=== PATIENT | male | born 1970 | race Caucasian/White ===

== ENCOUNTER 2021-01-28 11:03 | Inpatient (IN) | payer BC ==
[~2021-01-28] VITALS: Ht 195.6 cm; Wt 202.1 kg
[~2021-01-28 11:03] MED LIST: CIPRO500 MG PO; DOXYCYCLINE HY100 MG PO; FEROSUL325 MG PO; GLYBURIDE-METF1 EAC1; LIPITOR20 MG; METFORMIN HCL500 MG PO; SANTYL15 GM; TYLENOL WITH C1 EACH PO; VASOTEC10 MG PO
[2021-01-28 20:00] VITALS: BP 154/74
[2021-01-28] MEDS: PIPERACILLIN/TAZOBAC 3.375 GM in SODIUM CHLORIDE 0.9% 50ML 50 ML IV SCH (20:40)
[2021-01-28 21:00] VITALS: BP 154/74
[2021-01-28] MEDS ORDERED: NEURONTIN300 MG PO (21:10)
[2021-01-28] MEDS ORDERED: ASPIRIN CHEW81 MG PO (21:10)
[2021-01-28] MEDS ORDERED: TRICOR145 MG PO (21:10)
[2021-01-28] MEDS ORDERED: CRESTOR10 MG PO (21:10)
[2021-01-28] MEDS ORDERED: TRESIBA100 UNIT/1 SC (21:10)
[2021-01-28] MEDS ORDERED: LISINOPRIL10 MG PO (21:10)
[2021-01-28] MEDS ORDERED: HUMULIN R100 UNIT/2 INJ (21:10)
[2021-01-28] MEDS ORDERED: CLOPIDOGREL75 MG PO (21:10)
[2021-01-28] MEDS ORDERED: OZEMPIC1 MG/0.75 SC (21:11)
[2021-01-28 21:14] LABS: BASOPHILS # (AUTO) 0.2 (0.0-0.1); BASOPHILS % 1.2 % (0.0-1.0); EOSINOPHILS % 8.4 % (0.0-6.0); HEMATOCRIT 36.3 % (38.2-49.6); LYMPHOCYTES # (AUTO) 3.2 (1.0-3.2); LYMPHOCYTES % 26.3 % (18.0-39.1); MEAN CORPUSCULAR HEMOGLOBIN 24.6 pg (28-32); MEAN CORPUSCULAR HGB CONC 30.3 g/dL (31-35); MEAN CORPUSCULAR VOLUME 81.2 fL (81-99); MONOCYTES # (AUTO) 0.8 (0.2-0.8); MONOCYTES % 6.3 % (4.4-11.3); NEUTROPHILS % 57.1 % (38.7-80.0); PLATELET COUNT 470 x10e3/uL (140-360); RED BLOOD COUNT 4.47 x10e6/uL (4.3-5.7); RED CELL DISTRIBUTION WIDTH 15.6 % (11.7-14.4)
[2021-01-28] MEDS ORDERED: DEXTROSE 50% SYRINGE 50 ML IV PRN (21:15)
[2021-01-28 21:27] LABS: INR 1.02
[2021-01-28 21:35] LABS: ALBUMIN 2.2 g/dL (3.5-5.0); ALBUMIN/GLOBULIN RATIO 0.5 (0.8-2.0); ALKALINE PHOSPHATASE 87 IU/L (40-150); BLOOD UREA NITROGEN 39 mg/dL (7-26); BUN/CREATININE RATIO 15 (6-25); CARBON DIOXIDE 21 mmol/L (22-29); CHLORIDE 106 mmol/L (98-107); EST GLOMERULAR FILTRATION RATE 26 ML/MIN (60-); GLUCOSE 218 mg/dL (74-118); SODIUM 137 mmol/L (136-145)
[2021-01-28 21:36] LABS: ALANINE AMINOTRANSFERASE < 6 IU/L (0-55)
[2021-01-28 22:24] LABS: MAGNESIUM 2.1 MG/DL (1.3-2.1); PHOSPHORUS 3.8 MG/DL (2.3-4.7)
[2021-01-29] VITALS (7 sets, daily range): BP systolic 114–171; BP diastolic 57–97
[2021-01-29] MEDS ORDERED: PIPER-TAZ 3.375 GM 50 ML IV SCH
[2021-01-29] MEDS ORDERED: SODIUM CHLORIDE 0.9% 1000ML 1,000 ML ONE (02:46)
[2021-01-29] MEDS ORDERED: VANCOMYCIN 1GM/NS 250 ML 250 ML IV SCH (03:00)
[2021-01-29] MEDS: PIPERACILLIN/TAZOBAC 3.375 GM in SODIUM CHLORIDE 0.9% 50ML 50 ML IV SCH ×5 (03:07→22:34)
[2021-01-29] MEDS: INSULIN LISPRO 100 UNIT/1 ML 3ML VIAL SQ SCH ×4 (03:10→20:45)
[2021-01-29] MEDS: VANCOMYCIN 1GM/NS 250 ML 250 ML IV SCH ×2 (04:29→17:18)
[2021-01-29] MEDS ORDERED: HYDROCODONE/APAP 10MG-325MG TAB PO PRN (05:00)
[2021-01-29] MEDS ORDERED: ACETAMINOPHEN 325 MG TAB PO PRN (05:00)
[2021-01-29 05:10] LABS: BASOPHILS # (AUTO) 0.1 (0.0-0.1); BASOPHILS % 0.9 % (0.0-1.0); EOSINOPHILS # (AUTO) 1.2 (0.0-0.4); EOSINOPHILS % 11.1 % (0.0-6.0); HEMOGLOBIN 9.9 g/dL (14.0-18.0); LYMPHOCYTES # (AUTO) 3.3 (1.0-3.2); LYMPHOCYTES % 29.3 % (18.0-39.1); MEAN CORPUSCULAR HEMOGLOBIN 25.4 pg (28-32); MEAN CORPUSCULAR HGB CONC 31.9 g/dL (31-35); MEAN CORPUSCULAR VOLUME 79.5 fL (81-99); MONOCYTES # (AUTO) 0.7 (0.2-0.8); MONOCYTES % 6.3 % (4.4-11.3); NEUTROPHILS # (AUTO) 5.8 (2.1-6.9); NEUTROPHILS % 51.9 % (38.7-80.0); PLATELET COUNT 428 x10e3/uL (140-360); RED CELL DISTRIBUTION WIDTH 15.3 % (11.7-14.4)
[2021-01-29 05:29] LABS: ALBUMIN 1.9 g/dL (3.5-5.0); ALBUMIN/GLOBULIN RATIO 0.5 (0.8-2.0); ALKALINE PHOSPHATASE 79 IU/L (40-150); ANION GAP 12.8 mmol/L (8-16); BLOOD UREA NITROGEN 34 mg/dL (7-26); BUN/CREATININE RATIO 14 (6-25); CALCIUM 8.4 mg/dL (8.4-10.2); CARBON DIOXIDE 21 mmol/L (22-29); CHLORIDE 107 mmol/L (98-107); EST GLOMERULAR FILTRATION RATE 29 ML/MIN (60-); GLUCOSE 207 mg/dL (74-118); POTASSIUM 4.8 mmol/L (3.5-5.1); SODIUM 136 mmol/L (136-145)
[2021-01-29 05:33] LABS: ALANINE AMINOTRANSFERASE < 6 IU/L (0-55)
[2021-01-29] MEDS ORDERED: LISINOPRIL 20 MG TAB PO SCH (09:00)
[2021-01-29] MEDS: GABAPENTIN 300 MG CAP PO SCH ×4 (09:00→17:12)
[2021-01-29] MEDS ORDERED: SIMVASTATIN 40 MG TAB PO SCH (09:00)
[2021-01-29] MEDS ORDERED: FENOFIBRATE 145 MG TAB PO SCH (09:00)
[2021-01-29] MEDS: ASPIRIN 81 MG CHEW TAB PO SCH (09:44)
[2021-01-29] MEDS: CLOPIDOGREL BISULFATE 75 MG TAB PO SCH (09:44)
[2021-01-29] MEDS: SILVER SULFADIAZINE 50GM CREAM TOP SCH ×2 (11:29→17:12)
[2021-01-29] MEDS ORDERED: SODIUM CHLORIDE 0.9% 50ML 50 ML ONE (16:12)
[2021-01-29] MEDS: FUROSEMIDE INJ 10 MG/ML 4 ML VIAL IV SCH ×2 (17:13→20:48)
[2021-01-29] MEDS: CRESTOR 10MG PO SCH (20:48)
[2021-01-29] MEDS ORDERED: CEFTRIAXONE SOD 1 GM/50 ML BAG IV SCH (23:15)
[2021-01-29] MEDS: CEFTRIAXONE SOD 1 GM in SODIUM CHLORIDE 0.9% 50ML 50 ML IV SCH (23:46)
[2021-01-30] VITALS (8 sets, daily range): BP systolic 145–167; BP diastolic 83–91
[2021-01-30 04:33] LABS: BASOPHILS # (AUTO) 0.1 (0.0-0.1); BASOPHILS % 0.8 % (0.0-1.0); EOSINOPHILS # (AUTO) 1.1 (0.0-0.4); EOSINOPHILS % 10.6 % (0.0-6.0); HEMATOCRIT 31.9 % (38.2-49.6); LYMPHOCYTES # (AUTO) 2.5 (1.0-3.2); LYMPHOCYTES % 23.9 % (18.0-39.1); MEAN CORPUSCULAR HEMOGLOBIN 24.8 pg (28-32); MEAN CORPUSCULAR HGB CONC 31.3 g/dL (31-35); MEAN CORPUSCULAR VOLUME 79.2 fL (81-99); MONOCYTES # (AUTO) 0.7 (0.2-0.8); MONOCYTES % 6.6 % (4.4-11.3); NEUTROPHILS # (AUTO) 6.1 (2.1-6.9); NEUTROPHILS % 57.5 % (38.7-80.0); PLATELET COUNT 420 x10e3/uL (140-360); RED BLOOD COUNT 4.03 x10e6/uL (4.3-5.7); RED CELL DISTRIBUTION WIDTH 15.3 % (11.7-14.4)
[2021-01-30] MEDS: CLINDAMYCIN 600MG / 50ML 50 ML IV SCH ×3 (04:38→21:30)
[2021-01-30] MEDS ORDERED: DEXTROSE 50% SYRINGE 50 ML IV PRN (04:45)
[2021-01-30 04:49] LABS: PHOSPHORUS 4.1 MG/DL (2.3-4.7)
[2021-01-30 04:51] LABS: ALBUMIN/GLOBULIN RATIO 0.5 (0.8-2.0); ANION GAP 13.1 mmol/L (8-16); CALCIUM 8.6 mg/dL (8.4-10.2); CREATININE, SERUM 2.58 mg/dL (0.72-1.25); POTASSIUM 5.1 mmol/L (3.5-5.1)
[2021-01-30 07:44] LABS: CLARITY,URINE CLEAR (CLEAR); COLOR,URINE YELLOW (YELLOW); KETONES,URINE NEGATIVE (NEGATIVE); LEUKOCYTE ESTERASE ,URINE NEGATIVE (NEGATIVE); NITRITE,URINE NEGATIVE (NEGATIVE); PROTEIN,URINE DIPSTICK 3+ (NEGATIVE); URINE UROBILINOGEN 0.2 mg/dL (0.2 - 1)
[2021-01-30 08:28] LABS: BACTERIA,URINE RARE /HPF; EPITHELIAL CELLS,URINE FEW /LPF; RBC,URINE 0-5 /HPF (0-5)
[2021-01-30 08:51] LABS: CREATININE,URINE RANDOM 62.3 mg/dL (63-166)
[2021-01-30 09:48] LABS: TOTAL PROTEIN, URINE 527.5 mg/dL (1-14)
[2021-01-30] MEDS: ASPIRIN 81 MG CHEW TAB PO SCH (10:34)
[2021-01-30] MEDS: CLOPIDOGREL BISULFATE 75 MG TAB PO SCH (10:34)
[2021-01-30] MEDS: LACTOBACILLUS ACIDOPHILUS CAPSULE PO SCH ×2 (10:34→16:27)
[2021-01-30] MEDS: GABAPENTIN 300 MG CAP PO SCH ×3 (10:34→16:27)
[2021-01-30] MEDS: INSULIN LISPRO 100 UNIT/1 ML 3ML VIAL SQ SCH ×5 (10:35→20:49)
[2021-01-30] MEDS: SILVER SULFADIAZINE 50GM CREAM TOP SCH ×2 (10:52→15:58)
[2021-01-30] MEDS ORDERED: SOD POLYSTYRENE SULFONATE SUSP 15 GM/60 ML BTL PR ONE (14:25)
[2021-01-30 15:27] LABS: FREE T4 (FREE THYROXINE) 0.76 ng/dL (0.8-1.8); THYROID STIMULATING HORMONE 1.285 uIU/mL (0.350-4.940)
[2021-01-30] MEDS: INSULIN GLARGINE 100 UNITS/ML VIAL SQ SCH (16:00)
[2021-01-30] MEDS ORDERED: NIFEDIPINE CR 30 MG TAB PO ONE (16:30)
[2021-01-30] MEDS: CRESTOR 10MG PO SCH (21:00)
[2021-01-30] MEDS: CEFTRIAXONE SOD 1 GM in SODIUM CHLORIDE 0.9% 50ML 50 ML IV SCH (22:40)
[2021-01-31] VITALS (7 sets, daily range): BP systolic 122–162; BP diastolic 57–89
[2021-01-31] MEDS: CLINDAMYCIN 600MG / 50ML 50 ML IV SCH ×3 (05:29→21:08)
[2021-01-31 06:14] LABS: ALBUMIN/GLOBULIN RATIO 0.5 (0.8-2.0); ANION GAP 10.9 mmol/L (8-16); CALCIUM 8.1 mg/dL (8.4-10.2); CREATININE, SERUM 2.5 mg/dL (0.72-1.25); POTASSIUM 4.9 mmol/L (3.5-5.1)
[2021-01-31] MEDS: INSULIN LISPRO 100 UNIT/1 ML 3ML VIAL SQ SCH ×7 (08:21→20:29)
[2021-01-31] MEDS: INSULIN GLARGINE 100 UNITS/ML VIAL SQ SCH ×2 (08:21→16:29)
[2021-01-31] MEDS: CLOPIDOGREL BISULFATE 75 MG TAB PO SCH (08:22)
[2021-01-31] MEDS: GABAPENTIN 300 MG CAP PO SCH ×2 (08:22→16:23)
[2021-01-31] MEDS: LACTOBACILLUS ACIDOPHILUS CAPSULE PO SCH ×2 (08:22→16:23)
[2021-01-31] MEDS: PREDNISONE 20 MG TAB PO SCH (08:22)
[2021-01-31] MEDS: ASPIRIN 81 MG CHEW TAB PO SCH (08:22)
[2021-01-31] MEDS: NIFEDIPINE CR 30 MG TAB PO SCH (08:23)
[2021-01-31] MEDS: SILVER SULFADIAZINE 50GM CREAM TOP SCH ×2 (08:23→16:23)
[2021-01-31] MEDS: CRESTOR 10MG PO SCH (20:28)
[2021-01-31] MEDS: CEFTRIAXONE SOD 1 GM in SODIUM CHLORIDE 0.9% 50ML 50 ML IV SCH (22:54)
[2021-02-01] VITALS (8 sets, daily range): BP systolic 137–160; BP diastolic 78–91
[2021-02-01] MEDS: CLINDAMYCIN 600MG / 50ML 50 ML IV SCH ×3 (05:02→22:37)
[2021-02-01] MEDS: SILVER SULFADIAZINE 50GM CREAM TOP SCH (09:00)
[2021-02-01] MEDS: BUMETANIDE 1 MG TAB PO SCH (10:15)
[2021-02-01] MEDS: GABAPENTIN 300 MG CAP PO SCH ×2 (10:15→16:36)
[2021-02-01] MEDS: PREDNISONE 20 MG TAB PO SCH (10:15)
[2021-02-01] MEDS: CLOPIDOGREL BISULFATE 75 MG TAB PO SCH (10:15)
[2021-02-01] MEDS: LACTOBACILLUS ACIDOPHILUS CAPSULE PO SCH ×2 (10:15→16:36)
[2021-02-01] MEDS: ASPIRIN 81 MG CHEW TAB PO SCH (10:15)
[2021-02-01] MEDS: NIFEDIPINE CR 30 MG TAB PO SCH (10:16)
[2021-02-01] MEDS: INSULIN LISPRO 100 UNIT/1 ML 3ML VIAL SQ SCH ×7 (10:18→20:16)
[2021-02-01] MEDS: INSULIN GLARGINE 100 UNITS/ML VIAL SQ SCH ×2 (10:19→20:15)
[2021-02-01] MEDS ORDERED: SEVOFLURANE INHAL SOLN 250 ML PEN BTL ONE (13:43)
[2021-02-01] MEDS ORDERED: ONDANSETRON HCL INJ 2MG/ML 2ML 2 MG/ML VIAL ONE (13:43)
[2021-02-01] MEDS ORDERED: PROPOFOL IV EMULSION 10 MG/ML 20 ML VIAL ONE (13:43)
[2021-02-01] MEDS ORDERED: DEXAMETHASONE SOD PHOS INJ 4 MG/ML VIAL ONE (13:43)
[2021-02-01] MEDS ORDERED: LIDOCAINE HCL 2% LOCAL INJ 5 ML SDV VIAL INJ ONE (13:43)
[2021-02-01] MEDS ORDERED: ALBUTEROL SULFATE HFA 8GM INHALATION AEROSOL INH ONE (13:43)
[2021-02-01] MEDS ORDERED: FENTANYL CITRATE/PF 100MCG/2 ML INJ ONE (19:35)
[2021-02-01] MEDS: CRESTOR 10MG PO SCH (20:14)
[2021-02-01] MEDS: CEFTRIAXONE SOD 1 GM in SODIUM CHLORIDE 0.9% 50ML 50 ML IV SCH (23:18)
[2021-02-02] VITALS (8 sets, daily range): BP systolic 102–180; BP diastolic 63–91
[2021-02-02] MEDS ORDERED: CLONIDINE HCL 0.1 MG TAB PO PRN (05:30)
[2021-02-02] MEDS: CLINDAMYCIN 600MG / 50ML 50 ML IV SCH ×3 (06:05→22:10)
[2021-02-02 06:12] LABS: BASOPHILS % 0.2 % (0.0-1.0); EOSINOPHILS % 0.2 % (0.0-6.0); HEMATOCRIT 31.3 % (38.2-49.6); HEMOGLOBIN 9.8 g/dL (14.0-18.0); LYMPHOCYTES # (AUTO) 2.2 (1.0-3.2); LYMPHOCYTES % 17.3 % (18.0-39.1); MEAN CORPUSCULAR HEMOGLOBIN 24.7 pg (28-32); MEAN CORPUSCULAR HGB CONC 31.3 g/dL (31-35); MONOCYTES # (AUTO) 0.8 (0.2-0.8); MONOCYTES % 6.1 % (4.4-11.3); NEUTROPHILS # (AUTO) 9.7 (2.1-6.9); NEUTROPHILS % 75.4 % (38.7-80.0); PLATELET COUNT 403 x10e3/uL (140-360); RED BLOOD COUNT 3.96 x10e6/uL (4.3-5.7); RED CELL DISTRIBUTION WIDTH 15.4 % (11.7-14.4)
[2021-02-02 06:28] LABS: ALBUMIN 2.1 g/dL (3.5-5.0); ALBUMIN/GLOBULIN RATIO 0.5 (0.8-2.0); ANION GAP 12.8 mmol/L (8-16); CALCIUM 7.9 mg/dL (8.4-10.2); CREATININE, SERUM 2.46 mg/dL (0.72-1.25); MAGNESIUM 2.3 MG/DL (1.3-2.1); POTASSIUM 4.8 mmol/L (3.5-5.1)
[2021-02-02] MEDS: INSULIN LISPRO 100 UNIT/1 ML 3ML VIAL SQ SCH ×6 (08:36→21:00)
[2021-02-02] MEDS: GABAPENTIN 300 MG CAP PO SCH ×2 (09:01→17:42)
[2021-02-02] MEDS: ASPIRIN 81 MG CHEW TAB PO SCH (09:01)
[2021-02-02] MEDS: BUMETANIDE 1 MG TAB PO SCH (09:01)
[2021-02-02] MEDS: LACTOBACILLUS ACIDOPHILUS CAPSULE PO SCH ×2 (09:03→17:42)
[2021-02-02] MEDS: CLOPIDOGREL BISULFATE 75 MG TAB PO SCH (09:03)
[2021-02-02] MEDS: PREDNISONE 20 MG TAB PO SCH (09:03)
[2021-02-02] MEDS: NIFEDIPINE CR 30 MG TAB PO SCH (09:08)
[2021-02-02] MEDS: INSULIN GLARGINE 100 UNITS/ML VIAL SQ SCH (09:13)
[2021-02-02] MEDS: CRESTOR 10MG PO SCH (20:57)
[2021-02-02] MEDS ORDERED: INSULIN GLARGINE 100 UNITS/ML VIAL SQ SCH ×2 (21:00)
[2021-02-02] MEDS: CEFTRIAXONE SOD 1 GM in SODIUM CHLORIDE 0.9% 50ML 50 ML IV SCH (22:45)
[2021-02-03] VITALS (8 sets, daily range): BP systolic 136–193; BP diastolic 71–97
[2021-02-03] MEDS: CLINDAMYCIN 600MG / 50ML 50 ML IV SCH ×3 (06:06→22:33)
[2021-02-03] MEDS ORDERED: INSULIN LISPRO 100 UNIT/1 ML 3ML VIAL SQ SCH (07:30)
[2021-02-03] MEDS: INSULIN LISPRO 100 UNIT/1 ML 3ML VIAL SQ SCH ×7 (08:45→20:45)
[2021-02-03] MEDS: ASPIRIN 81 MG CHEW TAB PO SCH (08:46)
[2021-02-03] MEDS: GABAPENTIN 300 MG CAP PO SCH ×2 (08:46→17:50)
[2021-02-03] MEDS: LACTOBACILLUS ACIDOPHILUS CAPSULE PO SCH ×2 (08:46→17:50)
[2021-02-03] MEDS: CLOPIDOGREL BISULFATE 75 MG TAB PO SCH (08:46)
[2021-02-03] MEDS: BUMETANIDE 1 MG TAB PO SCH (08:46)
[2021-02-03] MEDS: PREDNISONE 20 MG TAB PO SCH (08:46)
[2021-02-03] MEDS: NIFEDIPINE CR 30 MG TAB PO SCH (08:47)
[2021-02-03] MEDS: CRESTOR 10MG PO SCH (20:45)
[2021-02-03] MEDS ORDERED: INSULIN GLARGINE 100 UNITS/ML VIAL SQ SCH (21:00)
[2021-02-03] MEDS: CEFTRIAXONE SOD 1 GM in SODIUM CHLORIDE 0.9% 50ML 50 ML IV SCH (23:17)
[2021-02-04] VITALS: BP 129/71
[2021-02-04] MEDS: CLINDAMYCIN 600MG / 50ML 50 ML IV SCH (06:04)
[2021-02-04 08:00] VITALS: BP 183/86
[2021-02-04] MEDS: INSULIN LISPRO 100 UNIT/1 ML 3ML VIAL SQ SCH ×6 (08:30→17:17)
[2021-02-04] MEDS: ASPIRIN 81 MG CHEW TAB PO SCH (09:00)
[2021-02-04] MEDS: CLOPIDOGREL BISULFATE 75 MG TAB PO SCH (09:00)
[2021-02-04] MEDS: NIFEDIPINE CR 30 MG TAB PO SCH (09:00)
[2021-02-04] MEDS: BUMETANIDE 1 MG TAB PO SCH (09:00)
[2021-02-04] MEDS: LACTOBACILLUS ACIDOPHILUS CAPSULE PO SCH ×2 (09:00→17:16)
[2021-02-04] MEDS: GABAPENTIN 300 MG CAP PO SCH ×2 (09:00→17:16)
[2021-02-04 11:44] VITALS: BP 129/94
[2021-02-04 13:17] LABS: ALBUMIN 2.3 g/dL (3.5-5.0); ALBUMIN/GLOBULIN RATIO 0.6 (0.8-2.0); ANION GAP 13.7 mmol/L (8-16); CALCIUM 7.9 mg/dL (8.4-10.2); POTASSIUM 4.7 mmol/L (3.5-5.1)
[2021-02-04 16:00] VITALS: BP 155/91
[2021-02-04 20:19] VITALS: BP 164/86
[2021-02-04 21:00] VITALS: BP 164/86
[2021-02-04] MEDS ORDERED: INSULIN GLARGINE 100 UNITS/ML VIAL SQ SCH (21:00)
[2021-02-04] MEDS: CRESTOR 10MG PO SCH (22:26)
[2021-02-04] MEDS: CEFTRIAXONE SOD 1 GM in SODIUM CHLORIDE 0.9% 50ML 50 ML IV SCH (22:26)
[2021-02-05] VITALS (8 sets, daily range): BP systolic 149–173; BP diastolic 73–85
[2021-02-05] MEDS: INSULIN LISPRO 100 UNIT/1 ML 3ML VIAL SQ SCH ×8 (00:10→20:21)
[2021-02-05 05:15] LABS: BASOPHILS # (AUTO) 0.1 (0.0-0.1); BASOPHILS % 0.3 % (0.0-1.0); EOSINOPHILS # (AUTO) 0.1 (0.0-0.4); EOSINOPHILS % 0.6 % (0.0-6.0); HEMATOCRIT 31.8 % (38.2-49.6); HEMOGLOBIN 10.2 g/dL (14.0-18.0); LYMPHOCYTES # (AUTO) 3.3 (1.0-3.2); LYMPHOCYTES % 20.9 % (18.0-39.1); MEAN CORPUSCULAR HEMOGLOBIN 25.5 pg (28-32); MEAN CORPUSCULAR HGB CONC 32.1 g/dL (31-35); MEAN CORPUSCULAR VOLUME 79.5 fL (81-99); MONOCYTES # (AUTO) 1.1 (0.2-0.8); MONOCYTES % 7.2 % (4.4-11.3); NEUTROPHILS # (AUTO) 10.8 (2.1-6.9); NEUTROPHILS % 69.1 % (38.7-80.0); PLATELET COUNT 429 x10e3/uL (140-360); RED CELL DISTRIBUTION WIDTH 15.9 % (11.7-14.4)
[2021-02-05 05:32] LABS: ALBUMIN 2.1 g/dL (3.5-5.0); ALBUMIN/GLOBULIN RATIO 0.5 (0.8-2.0); ANION GAP 14.5 mmol/L (8-16); CALCIUM 7.8 mg/dL (8.4-10.2); CREATININE, SERUM 2.16 mg/dL (0.72-1.25); POTASSIUM 4.5 mmol/L (3.5-5.1)
[2021-02-05] MEDS: ASPIRIN 81 MG CHEW TAB PO SCH (09:40)
[2021-02-05] MEDS: CLOPIDOGREL BISULFATE 75 MG TAB PO SCH (09:40)
[2021-02-05] MEDS: BUMETANIDE 1 MG TAB PO SCH (09:40)
[2021-02-05] MEDS: GABAPENTIN 300 MG CAP PO SCH ×2 (09:40→15:56)
[2021-02-05] MEDS: PREDNISONE 20 MG TAB PO SCH (09:41)
[2021-02-05] MEDS: LACTOBACILLUS ACIDOPHILUS CAPSULE PO SCH ×2 (09:41→15:56)
[2021-02-05] MEDS: NIFEDIPINE CR 30 MG TAB PO SCH (09:42)
[2021-02-05] MEDS: CRESTOR 10MG PO SCH (20:21)
[2021-02-05] MEDS ORDERED: INSULIN GLARGINE 100 UNITS/ML VIAL SQ SCH (21:00)
[2021-02-05] MEDS: CEFTRIAXONE SOD 1 GM in SODIUM CHLORIDE 0.9% 50ML 50 ML IV SCH (22:37)
[2021-02-06] VITALS: BP 157/73
[2021-02-06 04:00] VITALS: BP 153/94
[2021-02-06 06:08] LABS: ALBUMIN 2.2 g/dL (3.5-5.0); ALBUMIN/GLOBULIN RATIO 0.6 (0.8-2.0); ANION GAP 12.6 mmol/L (8-16); CALCIUM 7.8 mg/dL (8.4-10.2); CREATININE, SERUM 2.11 mg/dL (0.72-1.25); POTASSIUM 4.6 mmol/L (3.5-5.1)
[2021-02-06] MEDS: INSULIN LISPRO 100 UNIT/1 ML 3ML VIAL SQ SCH ×6 (07:30→16:30)
[2021-02-06 08:07] VITALS: BP 132/83
[2021-02-06] MEDS: PREDNISONE 20 MG TAB PO SCH (09:00)
[2021-02-06] MEDS: GABAPENTIN 300 MG CAP PO SCH ×2 (09:00→16:57)
[2021-02-06] MEDS: ASPIRIN 81 MG CHEW TAB PO SCH (09:00)
[2021-02-06] MEDS: LACTOBACILLUS ACIDOPHILUS CAPSULE PO SCH ×2 (09:00→16:57)
[2021-02-06] MEDS: CLOPIDOGREL BISULFATE 75 MG TAB PO SCH (09:00)
[2021-02-06] MEDS: BUMETANIDE 1 MG TAB PO SCH (09:00)
[2021-02-06] MEDS: NIFEDIPINE CR 30 MG TAB PO SCH (09:00)
[2021-02-06] MEDS ORDERED: CEFTRIAXONE SOD 2 GM/100 ML ML IV ONE (11:30)
[2021-02-06 11:44] VITALS: BP 144/68
[2021-02-06] MEDS ORDERED: CEFTRIAXONE SOD 2 GM 100 ML IV ONE (12:00)
[2021-02-06] MEDS ORDERED: PREDNISONE10 MG PO (14:47)
[2021-02-06] MEDS ORDERED: [UNRECOGNIZED DRUG - OTHER] SC (15:02)
[2021-02-06] MEDS ORDERED: HUMALOG SC (15:03)
[2021-02-06 15:42] VITALS: BP 155/92
[2021-02-07] MEDS ORDERED: CEFTRIAXONE SOD 1 GM in SODIUM CHLORIDE 0.9% 50ML 50 ML IV SCH (09:00)
== END 2021-02-06 17:20 | disposition home health service (06) | DRG 239 ==
LOC: MED/SURG2 19:00
PROVIDERS: ADMIT Internal Medicine; ATTEND Internal Medicine
PROC: 02HV33Z Insertion of Infusion Device into Superior Vena Cava, Percutaneous Approach (ICD-10-PCS; principal; 2021-01-29)
PROC: B548ZZA Ultrasonography of Superior Vena Cava, Guidance (ICD-10-PCS; 2021-01-29)
PROC: 0Y6N0ZB Detachment at Left Foot, Partial 2nd Ray, Open Approach (ICD-10-PCS; 2021-02-01)
PROC: 0Y6Q0Z0 Detachment at Left 1st Toe, Complete, Open Approach (ICD-10-PCS; 2021-02-01)
PROC: 0Y6U0Z0 Detachment at Left 3rd Toe, Complete, Open Approach (ICD-10-PCS; 2021-02-01)
PROC: 0JDR0ZZ Extraction of Left Foot Subcutaneous Tissue and Fascia, Open Approach (ICD-10-PCS; 2021-02-01)
DX: E11.52 Type 2 diabetes mellitus with diabetic peripheral angiopathy with gangrene (principal); N17.0 Acute kidney failure with tubular necrosis; M86.8X7 Other osteomyelitis, ankle and foot; Z68.43 Body mass index [BMI] 50.0-59.9, adult; L03.116 Cellulitis of left lower limb; E11.69 Type 2 diabetes mellitus with other specified complication; E11.42 Type 2 diabetes mellitus with diabetic polyneuropathy; E11.22 Type 2 diabetes mellitus with diabetic chronic kidney disease; I12.9 Hypertensive chronic kidney disease with stage 1 through stage 4 chronic kidney disease, or unspecified chronic kidney disease; N18.30 Chronic kidney disease, stage 3 unspecified; E78.5 Hyperlipidemia, unspecified; E66.01 Morbid (severe) obesity due to excess calories; D64.9 Anemia, unspecified; E11.21 Type 2 diabetes mellitus with diabetic nephropathy; E11.621 Type 2 diabetes mellitus with foot ulcer; G47.33 Obstructive sleep apnea (adult) (pediatric); L97.524 Non-pressure chronic ulcer of other part of left foot with necrosis of bone; Z79.4 Long term (current) use of insulin; Z86.73 Personal history of transient ischemic attack (TIA), and cerebral infarction without residual deficits; B95.1 Streptococcus, group B, as the cause of diseases classified elsewhere; T25.022A Burn of unspecified degree of left foot, initial encounter; T31.0 Burns involving less than 10% of body surface; W29.2XXA Contact with other powered household machinery, initial encounter
CPT/HCPCS: 36415; 36569; 71045; 76770; 80053; 81001; 82570; 82948; 83036; 83735; 84100; 84134; 84156; 84439; 84443; 85025; 85610; 87040; 87071; 87075; 87205; 88304; 88305; 88311; 93005; 93925; 97139; 99251; J0696; J1100; J1940; J2001; J2405; J2543; J3010; J3370; J7030; J7512; U0002

== ENCOUNTER → 2021-02-07 | Outpatient (CLI) | payer BC ==
[~2021-02-07] MED LIST changes: +ASPIRIN CHEW81 MG PO; +CLOPIDOGREL75 MG PO; +CRESTOR10 MG PO; +HUMALOG SC; +HUMULIN R100 UNIT/2 INJ; +LISINOPRIL10 MG PO; +NEURONTIN300 MG PO; +OZEMPIC1 MG/0.75 SC; +PREDNISONE10 MG PO; +TRESIBA100 UNIT/1 SC; +TRICOR145 MG PO; +[UNRECOGNIZED DRUG - OTHER] SC
== END ==
LOC: WCC 13:51
PROVIDERS: ATTEND Family Medicine Adult Medicine
DX: E11.621 Type 2 diabetes mellitus with foot ulcer (principal); E11.40 Type 2 diabetes mellitus with diabetic neuropathy, unspecified; E11.65 Type 2 diabetes mellitus with hyperglycemia; M86.172 Other acute osteomyelitis, left ankle and foot; L97.426 Non-pressure chronic ulcer of left heel and midfoot with bone involvement without evidence of necrosis; L97.528 Non-pressure chronic ulcer of other part of left foot with other specified severity; L97.521 Non-pressure chronic ulcer of other part of left foot limited to breakdown of skin; L03.116 Cellulitis of left lower limb; N17.9 Acute kidney failure, unspecified; I10 Essential (primary) hypertension; G45.9 Transient cerebral ischemic attack, unspecified; G47.39 Other sleep apnea; E78.5 Hyperlipidemia, unspecified; E66.01 Morbid (severe) obesity due to excess calories

== ENCOUNTER → 2021-02-08 | Outpatient (CLI) | payer BC ==
[~2021-02-08] MED LIST changes: +MINERAL OIL/PETROLAT/GLYCERI 6OZ BTL ONE
== END ==
LOC: WCC 15:35
PROVIDERS: ATTEND Internal Medicine Infectious Disease
DX: E11.621 Type 2 diabetes mellitus with foot ulcer (principal); E11.40 Type 2 diabetes mellitus with diabetic neuropathy, unspecified; E11.65 Type 2 diabetes mellitus with hyperglycemia; L97.426 Non-pressure chronic ulcer of left heel and midfoot with bone involvement without evidence of necrosis; L97.528 Non-pressure chronic ulcer of other part of left foot with other specified severity; L97.521 Non-pressure chronic ulcer of other part of left foot limited to breakdown of skin; M86.172 Other acute osteomyelitis, left ankle and foot; L03.116 Cellulitis of left lower limb; R60.0 Localized edema; G45.9 Transient cerebral ischemic attack, unspecified; N17.9 Acute kidney failure, unspecified; I10 Essential (primary) hypertension; E78.5 Hyperlipidemia, unspecified; G47.39 Other sleep apnea; E66.01 Morbid (severe) obesity due to excess calories

== ENCOUNTER → 2021-02-11 | Outpatient (CLI) | payer BC ==
[~2021-02-11] MED LIST changes: +ACETAMINOPHEN 325 MG TAB ONE; -MINERAL OIL/PETROLAT/GLYCERI 6OZ BTL ONE
== END ==
LOC: WCC 15:42
PROVIDERS: ATTEND Internal Medicine Infectious Disease
DX: T81.89XA Other complications of procedures, not elsewhere classified, initial encounter (principal); E11.621 Type 2 diabetes mellitus with foot ulcer; E11.40 Type 2 diabetes mellitus with diabetic neuropathy, unspecified; E11.65 Type 2 diabetes mellitus with hyperglycemia; M86.172 Other acute osteomyelitis, left ankle and foot; L97.521 Non-pressure chronic ulcer of other part of left foot limited to breakdown of skin; L03.116 Cellulitis of left lower limb; R60.0 Localized edema; N17.9 Acute kidney failure, unspecified; I10 Essential (primary) hypertension; G45.9 Transient cerebral ischemic attack, unspecified; E78.5 Hyperlipidemia, unspecified; G47.39 Other sleep apnea; E66.01 Morbid (severe) obesity due to excess calories

== ENCOUNTER → 2021-02-12 | Outpatient (CLI) | payer BC ==
[~2021-02-12] MED LIST changes: -ACETAMINOPHEN 325 MG TAB ONE
== END ==
LOC: WCC 15:54
PROVIDERS: ATTEND Internal Medicine Infectious Disease
DX: T81.89XA Other complications of procedures, not elsewhere classified, initial encounter (principal); E11.621 Type 2 diabetes mellitus with foot ulcer; E11.40 Type 2 diabetes mellitus with diabetic neuropathy, unspecified; E11.65 Type 2 diabetes mellitus with hyperglycemia; M86.172 Other acute osteomyelitis, left ankle and foot; L97.521 Non-pressure chronic ulcer of other part of left foot limited to breakdown of skin; L03.116 Cellulitis of left lower limb; R60.0 Localized edema; N17.9 Acute kidney failure, unspecified; I10 Essential (primary) hypertension; G45.9 Transient cerebral ischemic attack, unspecified; E78.5 Hyperlipidemia, unspecified; G47.39 Other sleep apnea; E66.01 Morbid (severe) obesity due to excess calories

== ENCOUNTER → 2021-02-13 | Outpatient (CLI) | payer BC | LOC: WCC 15:13 | PROVIDERS: ATTEND Internal Medicine Infectious Disease | DX: T81.89XA Other complications of procedures, not elsewhere classified, initial encounter (principal); M86.172 Other acute osteomyelitis, left ankle and foot; E11.621 Type 2 diabetes mellitus with foot ulcer; E11.40 Type 2 diabetes mellitus with diabetic neuropathy, unspecified; E11.65 Type 2 diabetes mellitus with hyperglycemia; L97.521 Non-pressure chronic ulcer of other part of left foot limited to breakdown of skin; L03.116 Cellulitis of left lower limb; R60.0 Localized edema; N17.9 Acute kidney failure, unspecified; I10 Essential (primary) hypertension; G45.9 Transient cerebral ischemic attack, unspecified; E78.5 Hyperlipidemia, unspecified; G47.39 Other sleep apnea; E66.01 Morbid (severe) obesity due to excess calories ==

== ENCOUNTER → 2021-02-18 | Outpatient (CLI) | payer BC | LOC: WCC 16:15 | PROVIDERS: ATTEND Internal Medicine Infectious Disease | DX: T81.89XA Other complications of procedures, not elsewhere classified, initial encounter (principal); E11.65 Type 2 diabetes mellitus with hyperglycemia; E11.40 Type 2 diabetes mellitus with diabetic neuropathy, unspecified; E11.621 Type 2 diabetes mellitus with foot ulcer; M86.172 Other acute osteomyelitis, left ankle and foot; L97.521 Non-pressure chronic ulcer of other part of left foot limited to breakdown of skin; L03.116 Cellulitis of left lower limb; R60.0 Localized edema; N17.9 Acute kidney failure, unspecified; I10 Essential (primary) hypertension; G45.9 Transient cerebral ischemic attack, unspecified; E78.5 Hyperlipidemia, unspecified; G47.39 Other sleep apnea; E66.01 Morbid (severe) obesity due to excess calories ==

== ENCOUNTER → 2021-02-19 | Outpatient (CLI) | payer BC | LOC: WCC 15:19 | PROVIDERS: ATTEND Internal Medicine Infectious Disease | DX: T81.89XA Other complications of procedures, not elsewhere classified, initial encounter (principal); E11.621 Type 2 diabetes mellitus with foot ulcer; E11.40 Type 2 diabetes mellitus with diabetic neuropathy, unspecified; E11.65 Type 2 diabetes mellitus with hyperglycemia; M86.172 Other acute osteomyelitis, left ankle and foot; L97.521 Non-pressure chronic ulcer of other part of left foot limited to breakdown of skin; L03.116 Cellulitis of left lower limb; G45.9 Transient cerebral ischemic attack, unspecified; R60.0 Localized edema; N17.9 Acute kidney failure, unspecified; I10 Essential (primary) hypertension; E78.5 Hyperlipidemia, unspecified; G47.39 Other sleep apnea; E66.01 Morbid (severe) obesity due to excess calories ==

== ENCOUNTER → 2021-02-21 | Outpatient (CLI) | payer BC | LOC: WCC 15:01 | PROVIDERS: ATTEND Internal Medicine Infectious Disease | DX: T81.89XA Other complications of procedures, not elsewhere classified, initial encounter (principal); E11.40 Type 2 diabetes mellitus with diabetic neuropathy, unspecified; E11.65 Type 2 diabetes mellitus with hyperglycemia; E11.621 Type 2 diabetes mellitus with foot ulcer; M86.172 Other acute osteomyelitis, left ankle and foot; L97.521 Non-pressure chronic ulcer of other part of left foot limited to breakdown of skin; L03.116 Cellulitis of left lower limb; R60.0 Localized edema; E78.5 Hyperlipidemia, unspecified; I10 Essential (primary) hypertension; G47.39 Other sleep apnea; N17.9 Acute kidney failure, unspecified; G45.9 Transient cerebral ischemic attack, unspecified; E66.01 Morbid (severe) obesity due to excess calories ==

== ENCOUNTER → 2021-02-26 | Outpatient (CLI) | payer BC | LOC: WCC 16:09 | PROVIDERS: ATTEND Internal Medicine Infectious Disease | DX: T81.89XA Other complications of procedures, not elsewhere classified, initial encounter (principal); E11.40 Type 2 diabetes mellitus with diabetic neuropathy, unspecified; E11.65 Type 2 diabetes mellitus with hyperglycemia; E11.621 Type 2 diabetes mellitus with foot ulcer; M86.172 Other acute osteomyelitis, left ankle and foot; L97.521 Non-pressure chronic ulcer of other part of left foot limited to breakdown of skin; L03.116 Cellulitis of left lower limb; R60.0 Localized edema; N17.9 Acute kidney failure, unspecified; I10 Essential (primary) hypertension; G45.9 Transient cerebral ischemic attack, unspecified; E78.5 Hyperlipidemia, unspecified; G47.39 Other sleep apnea; E66.01 Morbid (severe) obesity due to excess calories ==

== ENCOUNTER → 2021-03-01 | Outpatient (CLI) | payer BC | LOC: WCC 16:15 | PROVIDERS: ATTEND Internal Medicine Infectious Disease | DX: T81.89XA Other complications of procedures, not elsewhere classified, initial encounter (principal); R60.0 Localized edema; M86.172 Other acute osteomyelitis, left ankle and foot; E11.621 Type 2 diabetes mellitus with foot ulcer; E11.40 Type 2 diabetes mellitus with diabetic neuropathy, unspecified; E11.65 Type 2 diabetes mellitus with hyperglycemia; L97.521 Non-pressure chronic ulcer of other part of left foot limited to breakdown of skin; L03.116 Cellulitis of left lower limb; N17.9 Acute kidney failure, unspecified; I10 Essential (primary) hypertension; G45.9 Transient cerebral ischemic attack, unspecified; E78.5 Hyperlipidemia, unspecified; G47.39 Other sleep apnea; E66.01 Morbid (severe) obesity due to excess calories ==

== ENCOUNTER → 2021-03-04 | Outpatient (CLI) | payer BC | LOC: WCC 15:34 | PROVIDERS: ATTEND Internal Medicine Infectious Disease | DX: T81.89XA Other complications of procedures, not elsewhere classified, initial encounter (principal); E11.621 Type 2 diabetes mellitus with foot ulcer; E11.40 Type 2 diabetes mellitus with diabetic neuropathy, unspecified; E11.65 Type 2 diabetes mellitus with hyperglycemia; M86.172 Other acute osteomyelitis, left ankle and foot; L97.521 Non-pressure chronic ulcer of other part of left foot limited to breakdown of skin; L03.116 Cellulitis of left lower limb; R60.0 Localized edema; N17.9 Acute kidney failure, unspecified; I10 Essential (primary) hypertension; G45.9 Transient cerebral ischemic attack, unspecified; E78.5 Hyperlipidemia, unspecified; G47.39 Other sleep apnea; E66.01 Morbid (severe) obesity due to excess calories ==

== ENCOUNTER → 2021-03-06 | Outpatient (CLI) | payer BC | LOC: WCC 16:28 | PROVIDERS: ATTEND Internal Medicine Infectious Disease | DX: T81.89XA Other complications of procedures, not elsewhere classified, initial encounter (principal); E11.40 Type 2 diabetes mellitus with diabetic neuropathy, unspecified; E11.65 Type 2 diabetes mellitus with hyperglycemia; E11.621 Type 2 diabetes mellitus with foot ulcer; M86.172 Other acute osteomyelitis, left ankle and foot; L97.521 Non-pressure chronic ulcer of other part of left foot limited to breakdown of skin; L03.116 Cellulitis of left lower limb; R60.0 Localized edema; N17.9 Acute kidney failure, unspecified; I10 Essential (primary) hypertension; G45.9 Transient cerebral ischemic attack, unspecified; E78.5 Hyperlipidemia, unspecified; G47.39 Other sleep apnea; E66.01 Morbid (severe) obesity due to excess calories ==

== ENCOUNTER → 2021-03-12 | Outpatient (CLI) | payer BC | LOC: WCC 15:13 | PROVIDERS: ATTEND Internal Medicine Infectious Disease | DX: T81.89XA Other complications of procedures, not elsewhere classified, initial encounter (principal); E11.40 Type 2 diabetes mellitus with diabetic neuropathy, unspecified; E11.65 Type 2 diabetes mellitus with hyperglycemia; E11.621 Type 2 diabetes mellitus with foot ulcer; M86.172 Other acute osteomyelitis, left ankle and foot; L97.521 Non-pressure chronic ulcer of other part of left foot limited to breakdown of skin; L03.116 Cellulitis of left lower limb; R60.0 Localized edema; G45.9 Transient cerebral ischemic attack, unspecified; N17.9 Acute kidney failure, unspecified; I10 Essential (primary) hypertension; E78.5 Hyperlipidemia, unspecified; G47.39 Other sleep apnea; E66.01 Morbid (severe) obesity due to excess calories ==

== ENCOUNTER → 2021-03-15 | Outpatient (CLI) | payer BC | LOC: WCC 14:45 | PROVIDERS: ATTEND Internal Medicine Infectious Disease | DX: T81.89XA Other complications of procedures, not elsewhere classified, initial encounter (principal); E11.40 Type 2 diabetes mellitus with diabetic neuropathy, unspecified; E11.621 Type 2 diabetes mellitus with foot ulcer; E11.65 Type 2 diabetes mellitus with hyperglycemia; M86.172 Other acute osteomyelitis, left ankle and foot; L03.116 Cellulitis of left lower limb; R60.0 Localized edema; N17.9 Acute kidney failure, unspecified; I10 Essential (primary) hypertension; G45.9 Transient cerebral ischemic attack, unspecified; E78.5 Hyperlipidemia, unspecified; G47.39 Other sleep apnea; E66.01 Morbid (severe) obesity due to excess calories ==

== ENCOUNTER → 2021-03-18 | Outpatient (CLI) | payer BC | LOC: WCC 15:09 | PROVIDERS: ATTEND Internal Medicine Infectious Disease | DX: T81.89XA Other complications of procedures, not elsewhere classified, initial encounter (principal); E11.40 Type 2 diabetes mellitus with diabetic neuropathy, unspecified; E11.621 Type 2 diabetes mellitus with foot ulcer; E11.65 Type 2 diabetes mellitus with hyperglycemia; M86.172 Other acute osteomyelitis, left ankle and foot; L03.116 Cellulitis of left lower limb; R60.0 Localized edema; N17.9 Acute kidney failure, unspecified; I10 Essential (primary) hypertension; G45.9 Transient cerebral ischemic attack, unspecified; E78.5 Hyperlipidemia, unspecified; G47.39 Other sleep apnea; E66.01 Morbid (severe) obesity due to excess calories ==

== ENCOUNTER → 2021-03-26 | Outpatient (CLI) | payer BC | LOC: WCC 15:35 | PROVIDERS: ATTEND Internal Medicine Infectious Disease | DX: T81.89XA Other complications of procedures, not elsewhere classified, initial encounter (principal); E11.621 Type 2 diabetes mellitus with foot ulcer; E11.40 Type 2 diabetes mellitus with diabetic neuropathy, unspecified; E11.65 Type 2 diabetes mellitus with hyperglycemia; M86.172 Other acute osteomyelitis, left ankle and foot; L97.521 Non-pressure chronic ulcer of other part of left foot limited to breakdown of skin; L03.116 Cellulitis of left lower limb; R60.0 Localized edema; S90.822A Blister (nonthermal), left foot, initial encounter; N17.9 Acute kidney failure, unspecified; I10 Essential (primary) hypertension; G45.9 Transient cerebral ischemic attack, unspecified; E78.5 Hyperlipidemia, unspecified; G47.39 Other sleep apnea; E66.01 Morbid (severe) obesity due to excess calories ==

== ENCOUNTER → 2021-03-29 | Outpatient (CLI) | payer BC | LOC: WCC 15:18 | PROVIDERS: ATTEND Internal Medicine Infectious Disease | DX: E11.621 Type 2 diabetes mellitus with foot ulcer (principal); E11.40 Type 2 diabetes mellitus with diabetic neuropathy, unspecified; E11.65 Type 2 diabetes mellitus with hyperglycemia; M86.172 Other acute osteomyelitis, left ankle and foot; L97.521 Non-pressure chronic ulcer of other part of left foot limited to breakdown of skin; L03.116 Cellulitis of left lower limb; S90.822A Blister (nonthermal), left foot, initial encounter; R60.0 Localized edema; N17.9 Acute kidney failure, unspecified; I10 Essential (primary) hypertension; G45.9 Transient cerebral ischemic attack, unspecified; E78.5 Hyperlipidemia, unspecified; G47.39 Other sleep apnea; E66.01 Morbid (severe) obesity due to excess calories ==

== ENCOUNTER → 2021-04-02 | Outpatient (CLI) | payer BC ==
[~2021-04-02] MED LIST changes: +MINERAL OIL/PETROLAT/GLYCERI 6OZ BTL ONE
== END ==
LOC: WCC 14:26
PROVIDERS: ATTEND Internal Medicine Infectious Disease
DX: E11.621 Type 2 diabetes mellitus with foot ulcer (principal); E11.40 Type 2 diabetes mellitus with diabetic neuropathy, unspecified; E11.65 Type 2 diabetes mellitus with hyperglycemia; M86.172 Other acute osteomyelitis, left ankle and foot; L97.521 Non-pressure chronic ulcer of other part of left foot limited to breakdown of skin; L03.116 Cellulitis of left lower limb; R60.0 Localized edema; S90.822A Blister (nonthermal), left foot, initial encounter; N17.9 Acute kidney failure, unspecified; I10 Essential (primary) hypertension; G47.39 Other sleep apnea; G45.9 Transient cerebral ischemic attack, unspecified; E66.01 Morbid (severe) obesity due to excess calories; E78.5 Hyperlipidemia, unspecified
CPT/HCPCS: 36415; 82948

== ENCOUNTER → 2021-04-05 | Outpatient (CLI) | payer BC ==
[~2021-04-05] MED LIST changes: -MINERAL OIL/PETROLAT/GLYCERI 6OZ BTL ONE
== END ==
LOC: WCC 14:19
PROVIDERS: ATTEND Internal Medicine Infectious Disease
DX: E11.621 Type 2 diabetes mellitus with foot ulcer (principal); E11.40 Type 2 diabetes mellitus with diabetic neuropathy, unspecified; E11.65 Type 2 diabetes mellitus with hyperglycemia; M86.172 Other acute osteomyelitis, left ankle and foot; L97.521 Non-pressure chronic ulcer of other part of left foot limited to breakdown of skin; S90.425A Blister (nonthermal), left lesser toe(s), initial encounter; S90.822A Blister (nonthermal), left foot, initial encounter; L03.116 Cellulitis of left lower limb; R60.0 Localized edema; N17.9 Acute kidney failure, unspecified; I10 Essential (primary) hypertension; G45.9 Transient cerebral ischemic attack, unspecified; E78.5 Hyperlipidemia, unspecified; G47.39 Other sleep apnea; E66.01 Morbid (severe) obesity due to excess calories

== ENCOUNTER → 2021-04-08 | Outpatient (CLI) | payer BC | LOC: WCC 15:19 | PROVIDERS: ATTEND Internal Medicine Infectious Disease | DX: E11.621 Type 2 diabetes mellitus with foot ulcer (principal); E11.40 Type 2 diabetes mellitus with diabetic neuropathy, unspecified; E11.65 Type 2 diabetes mellitus with hyperglycemia; M86.172 Other acute osteomyelitis, left ankle and foot; L03.116 Cellulitis of left lower limb; L97.521 Non-pressure chronic ulcer of other part of left foot limited to breakdown of skin; S90.425A Blister (nonthermal), left lesser toe(s), initial encounter; S90.822A Blister (nonthermal), left foot, initial encounter; R60.0 Localized edema; N17.9 Acute kidney failure, unspecified; I10 Essential (primary) hypertension; E78.5 Hyperlipidemia, unspecified; G45.9 Transient cerebral ischemic attack, unspecified; G47.39 Other sleep apnea; E66.01 Morbid (severe) obesity due to excess calories ==

== ENCOUNTER → 2021-04-10 | Outpatient (CLI) | payer BC | LOC: WCC 16:13 | PROVIDERS: ATTEND Internal Medicine Infectious Disease | DX: E11.621 Type 2 diabetes mellitus with foot ulcer (principal); E11.40 Type 2 diabetes mellitus with diabetic neuropathy, unspecified; E11.65 Type 2 diabetes mellitus with hyperglycemia; M86.172 Other acute osteomyelitis, left ankle and foot; L97.521 Non-pressure chronic ulcer of other part of left foot limited to breakdown of skin; L03.116 Cellulitis of left lower limb; S90.425A Blister (nonthermal), left lesser toe(s), initial encounter; S90.822A Blister (nonthermal), left foot, initial encounter; R60.0 Localized edema; N17.9 Acute kidney failure, unspecified; I10 Essential (primary) hypertension; G45.9 Transient cerebral ischemic attack, unspecified; G47.39 Other sleep apnea; E66.01 Morbid (severe) obesity due to excess calories; E78.5 Hyperlipidemia, unspecified ==

== ENCOUNTER → 2021-04-12 | Outpatient (CLI) | payer BC | LOC: WCC 14:40 | PROVIDERS: ATTEND Internal Medicine Infectious Disease | DX: E11.621 Type 2 diabetes mellitus with foot ulcer (principal); E11.40 Type 2 diabetes mellitus with diabetic neuropathy, unspecified; E11.65 Type 2 diabetes mellitus with hyperglycemia; M86.172 Other acute osteomyelitis, left ankle and foot; L97.521 Non-pressure chronic ulcer of other part of left foot limited to breakdown of skin; L03.116 Cellulitis of left lower limb; S90.425A Blister (nonthermal), left lesser toe(s), initial encounter; R60.0 Localized edema; N17.9 Acute kidney failure, unspecified; I10 Essential (primary) hypertension; G45.9 Transient cerebral ischemic attack, unspecified; E78.5 Hyperlipidemia, unspecified; G47.39 Other sleep apnea; E66.01 Morbid (severe) obesity due to excess calories ==

== ENCOUNTER → 2021-04-16 | Outpatient (CLI) | payer BC | LOC: WCC 15:03 | PROVIDERS: ATTEND Internal Medicine Infectious Disease | DX: E11.621 Type 2 diabetes mellitus with foot ulcer (principal); E11.40 Type 2 diabetes mellitus with diabetic neuropathy, unspecified; E11.65 Type 2 diabetes mellitus with hyperglycemia; M86.172 Other acute osteomyelitis, left ankle and foot; L97.521 Non-pressure chronic ulcer of other part of left foot limited to breakdown of skin; L03.116 Cellulitis of left lower limb; S90.425A Blister (nonthermal), left lesser toe(s), initial encounter; R60.0 Localized edema; N17.9 Acute kidney failure, unspecified; I10 Essential (primary) hypertension; G45.9 Transient cerebral ischemic attack, unspecified; E78.5 Hyperlipidemia, unspecified; G47.39 Other sleep apnea; E66.01 Morbid (severe) obesity due to excess calories ==

== ENCOUNTER → 2021-04-19 | Outpatient (CLI) | payer BC | LOC: WCC 15:09 | PROVIDERS: ATTEND Internal Medicine Infectious Disease | DX: E11.621 Type 2 diabetes mellitus with foot ulcer (principal); E11.40 Type 2 diabetes mellitus with diabetic neuropathy, unspecified; E11.65 Type 2 diabetes mellitus with hyperglycemia; M86.172 Other acute osteomyelitis, left ankle and foot; L97.521 Non-pressure chronic ulcer of other part of left foot limited to breakdown of skin; L03.116 Cellulitis of left lower limb; R60.0 Localized edema; S90.425A Blister (nonthermal), left lesser toe(s), initial encounter; N17.9 Acute kidney failure, unspecified; I10 Essential (primary) hypertension; G45.9 Transient cerebral ischemic attack, unspecified; E78.5 Hyperlipidemia, unspecified; G47.39 Other sleep apnea; E66.01 Morbid (severe) obesity due to excess calories ==

== ENCOUNTER → 2021-04-23 | Outpatient (CLI) | payer BC | LOC: WCC 15:16 | PROVIDERS: ATTEND Internal Medicine Infectious Disease | DX: E11.621 Type 2 diabetes mellitus with foot ulcer (principal); E11.40 Type 2 diabetes mellitus with diabetic neuropathy, unspecified; E11.65 Type 2 diabetes mellitus with hyperglycemia; L97.521 Non-pressure chronic ulcer of other part of left foot limited to breakdown of skin; L03.116 Cellulitis of left lower limb; S90.425A Blister (nonthermal), left lesser toe(s), initial encounter; R60.0 Localized edema; N17.9 Acute kidney failure, unspecified; I10 Essential (primary) hypertension; E78.5 Hyperlipidemia, unspecified; G45.9 Transient cerebral ischemic attack, unspecified; G47.39 Other sleep apnea; E66.01 Morbid (severe) obesity due to excess calories ==

== ENCOUNTER → 2021-04-26 | Outpatient (CLI) | payer BC ==
[~2021-04-26] MED LIST changes: +SODIUM BICARBO650 MG PO
== END ==
LOC: WCC 14:33
PROVIDERS: ATTEND Internal Medicine Infectious Disease
DX: E11.621 Type 2 diabetes mellitus with foot ulcer (principal); E11.40 Type 2 diabetes mellitus with diabetic neuropathy, unspecified; E11.65 Type 2 diabetes mellitus with hyperglycemia; L97.521 Non-pressure chronic ulcer of other part of left foot limited to breakdown of skin; L03.116 Cellulitis of left lower limb; R60.0 Localized edema; S90.42 Blister (nonthermal) of toe; N17.9 Acute kidney failure, unspecified; I10 Essential (primary) hypertension; G45.9 Transient cerebral ischemic attack, unspecified; E78.5 Hyperlipidemia, unspecified; G47.39 Other sleep apnea; E66.01 Morbid (severe) obesity due to excess calories

== ENCOUNTER → 2021-04-29 | Outpatient (CLI) | payer BC | LOC: WCC 15:16 | PROVIDERS: ATTEND Internal Medicine Infectious Disease | DX: E11.621 Type 2 diabetes mellitus with foot ulcer (principal); E11.40 Type 2 diabetes mellitus with diabetic neuropathy, unspecified; E11.65 Type 2 diabetes mellitus with hyperglycemia; L97.521 Non-pressure chronic ulcer of other part of left foot limited to breakdown of skin; L03.116 Cellulitis of left lower limb; S90.425A Blister (nonthermal), left lesser toe(s), initial encounter; R60.0 Localized edema; N17.9 Acute kidney failure, unspecified; I10 Essential (primary) hypertension; E78.5 Hyperlipidemia, unspecified; G45.9 Transient cerebral ischemic attack, unspecified; G47.39 Other sleep apnea; E66.01 Morbid (severe) obesity due to excess calories ==

== ENCOUNTER → 2021-04-30 | Day surgery (SDC) | payer BC ==
[2021-04-26 13:57] LABS: BASOPHILS # (AUTO) 0.1 (0.0-0.1); BASOPHILS % 0.9 % (0.0-1.0); EOSINOPHILS # (AUTO) 0.7 (0.0-0.4); HEMATOCRIT 39.3 % (38.2-49.6); HEMOGLOBIN 12.3 g/dL (14.0-18.0); LYMPHOCYTES # (AUTO) 2.7 (1.0-3.2); LYMPHOCYTES % 27.2 % (18.0-39.1); MEAN CORPUSCULAR HEMOGLOBIN 25.7 pg (28-32); MEAN CORPUSCULAR HGB CONC 31.3 g/dL (31-35); MONOCYTES # (AUTO) 0.6 (0.2-0.8); NEUTROPHILS # (AUTO) 5.9 (2.1-6.9); NEUTROPHILS % 58.3 % (38.7-80.0); PLATELET COUNT 330 x10e3/uL (140-360); RED BLOOD COUNT 4.79 x10e6/uL (4.3-5.7); RED CELL DISTRIBUTION WIDTH 15.2 % (11.7-14.4)
[2021-04-26 14:25] LABS: ALBUMIN 2.6 g/dL (3.5-5.0); ALBUMIN/GLOBULIN RATIO 0.7 (0.8-2.0); ALKALINE PHOSPHATASE 83 IU/L (40-150); ANION GAP 11.6 mmol/L (8-16); BLOOD UREA NITROGEN 31 mg/dL (7-26); BUN/CREATININE RATIO 16 (6-25); CALCIUM 8.4 mg/dL (8.4-10.2); CARBON DIOXIDE 21 mmol/L (22-29); CHLORIDE 109 mmol/L (98-107); CREATININE, SERUM 1.94 mg/dL (0.72-1.25); EST GLOMERULAR FILTRATION RATE 37 ML/MIN (60-); GLUCOSE 188 mg/dL (74-118); POTASSIUM 4.6 mmol/L (3.5-5.1); SODIUM 137 mmol/L (136-145)
[2021-04-26 14:26] LABS: ALANINE AMINOTRANSFERASE < 6 IU/L (0-55)
[~2021-04-30] VITALS: Ht 195.6 cm; Wt 192.8 kg
[~2021-04-30] MED LIST changes: +FENTANYL CITRATE/PF 100MCG/2 ML INJ ONE; +HEPARIN SOD/SOD CHLORIDE 2,000 ML ONE; +IOPAMIDOL 370 MG/ML 200 ML INFUS..BTL INJ ONE; +LIDOCAINE HCL 2% LOCAL 20 ML VIAL ONE; +MIDAZOLAM HCL 2 MG/2 ML VIAL ONE; +SODIUM CHLORIDE 0.9% 1000ML 1,000 ML ONE
[2021-04-30 14:30] VITALS: BP 162/87
[2021-04-30 16:25] VITALS: BP 158/83
[2021-04-30 16:40] VITALS: BP 148/82
[2021-04-30 16:55] VITALS: BP 150/93
[2021-04-30 17:10] VITALS: BP 143/79
== END | disposition home or self-care (01) ==
LOC: CATH LAB 14:11
PROVIDERS: ATTEND Internal Medicine Interventional Cardiology
DX: I25.118 Atherosclerotic heart disease of native coronary artery with other forms of angina pectoris (principal); E11.9 Type 2 diabetes mellitus without complications; I87.2 Venous insufficiency (chronic) (peripheral); R94.39 Abnormal result of other cardiovascular function study; I10 Essential (primary) hypertension; I73.9 Peripheral vascular disease, unspecified; Z79.02 Long term (current) use of antithrombotics/antiplatelets; Z79.82 Long term (current) use of aspirin; Z79.4 Long term (current) use of insulin; Z68.43 Body mass index [BMI] 50.0-59.9, adult; Z86.73 Personal history of transient ischemic attack (TIA), and cerebral infarction without residual deficits; Z89.429 Acquired absence of other toe(s), unspecified side; Z82.49 Family history of ischemic heart disease and other diseases of the circulatory system; Z83.3 Family history of diabetes mellitus
CPT/HCPCS: 36415 ×2; 76937; 80053; 82948; 83880; 85025; 93458; C1887; C1894; J2001; J2250; J3010; J7030; Q9967; 99152

== ENCOUNTER → 2021-05-01 | Outpatient (CLI) | payer BC ==
[~2021-05-01] MED LIST changes: -FENTANYL CITRATE/PF 100MCG/2 ML INJ ONE; -HEPARIN SOD/SOD CHLORIDE 2,000 ML ONE; -IOPAMIDOL 370 MG/ML 200 ML INFUS..BTL INJ ONE; -LIDOCAINE HCL 2% LOCAL 20 ML VIAL ONE; -MIDAZOLAM HCL 2 MG/2 ML VIAL ONE; -SODIUM CHLORIDE 0.9% 1000ML 1,000 ML ONE
== END ==
LOC: WCC 15:13
PROVIDERS: ATTEND Internal Medicine Infectious Disease
DX: E11.621 Type 2 diabetes mellitus with foot ulcer (principal); E11.40 Type 2 diabetes mellitus with diabetic neuropathy, unspecified; E11.65 Type 2 diabetes mellitus with hyperglycemia; L97.521 Non-pressure chronic ulcer of other part of left foot limited to breakdown of skin; L03.116 Cellulitis of left lower limb; S90.425A Blister (nonthermal), left lesser toe(s), initial encounter; N17.9 Acute kidney failure, unspecified; I10 Essential (primary) hypertension; G45.9 Transient cerebral ischemic attack, unspecified; E78.5 Hyperlipidemia, unspecified; G47.39 Other sleep apnea; E66.01 Morbid (severe) obesity due to excess calories

== ENCOUNTER → 2021-05-03 | Outpatient (CLI) | payer BC ==
[~2021-05-03] MED LIST changes: +MINERAL OIL/PETROLAT/GLYCERI 2OZ CRM ONE
== END ==
LOC: WCC 15:50
PROVIDERS: ATTEND Internal Medicine Infectious Disease
DX: E11.621 Type 2 diabetes mellitus with foot ulcer (principal); E11.40 Type 2 diabetes mellitus with diabetic neuropathy, unspecified; E11.65 Type 2 diabetes mellitus with hyperglycemia; L97.521 Non-pressure chronic ulcer of other part of left foot limited to breakdown of skin; L03.116 Cellulitis of left lower limb; R60.0 Localized edema; S90.425A Blister (nonthermal), left lesser toe(s), initial encounter; N17.9 Acute kidney failure, unspecified; I10 Essential (primary) hypertension; G45.9 Transient cerebral ischemic attack, unspecified; E78.5 Hyperlipidemia, unspecified; G47.39 Other sleep apnea; E66.01 Morbid (severe) obesity due to excess calories

== ENCOUNTER → 2021-05-07 | Outpatient (CLI) | payer BC ==
[~2021-05-07] MED LIST changes: -MINERAL OIL/PETROLAT/GLYCERI 2OZ CRM ONE
== END ==
LOC: WCC 15:10
PROVIDERS: ATTEND Internal Medicine Infectious Disease
DX: E11.621 Type 2 diabetes mellitus with foot ulcer (principal); E11.40 Type 2 diabetes mellitus with diabetic neuropathy, unspecified; E11.65 Type 2 diabetes mellitus with hyperglycemia; L97.521 Non-pressure chronic ulcer of other part of left foot limited to breakdown of skin; L03.116 Cellulitis of left lower limb; S90.425A Blister (nonthermal), left lesser toe(s), initial encounter; R60.0 Localized edema; N17.9 Acute kidney failure, unspecified; I10 Essential (primary) hypertension; G45.9 Transient cerebral ischemic attack, unspecified; E78.5 Hyperlipidemia, unspecified; G47.39 Other sleep apnea; E66.01 Morbid (severe) obesity due to excess calories

== ENCOUNTER → 2021-05-10 | Outpatient (CLI) | payer BC | LOC: WCC 14:45 | PROVIDERS: ATTEND Internal Medicine Infectious Disease | DX: E11.621 Type 2 diabetes mellitus with foot ulcer (principal); E11.40 Type 2 diabetes mellitus with diabetic neuropathy, unspecified; E11.65 Type 2 diabetes mellitus with hyperglycemia; L97.521 Non-pressure chronic ulcer of other part of left foot limited to breakdown of skin; L03.116 Cellulitis of left lower limb; S90.425A Blister (nonthermal), left lesser toe(s), initial encounter; R60.0 Localized edema; N17.9 Acute kidney failure, unspecified; I10 Essential (primary) hypertension; G45.9 Transient cerebral ischemic attack, unspecified; E78.5 Hyperlipidemia, unspecified; G47.39 Other sleep apnea; E66.01 Morbid (severe) obesity due to excess calories ==

== ENCOUNTER → 2021-05-14 | Outpatient (CLI) | payer BC | LOC: WCC 15:22 | PROVIDERS: ATTEND Internal Medicine Infectious Disease | DX: E11.621 Type 2 diabetes mellitus with foot ulcer (principal); E11.40 Type 2 diabetes mellitus with diabetic neuropathy, unspecified; E11.65 Type 2 diabetes mellitus with hyperglycemia; L97.521 Non-pressure chronic ulcer of other part of left foot limited to breakdown of skin; L03.116 Cellulitis of left lower limb; S90.425A Blister (nonthermal), left lesser toe(s), initial encounter; R60.0 Localized edema; N17.9 Acute kidney failure, unspecified; I10 Essential (primary) hypertension; G45.9 Transient cerebral ischemic attack, unspecified; E78.5 Hyperlipidemia, unspecified; G47.39 Other sleep apnea; E66.01 Morbid (severe) obesity due to excess calories ==

== ENCOUNTER → 2021-05-17 | Outpatient (CLI) | payer BC | LOC: WCC 14:40 | PROVIDERS: ATTEND Internal Medicine Infectious Disease | DX: E11.621 Type 2 diabetes mellitus with foot ulcer (principal); E11.40 Type 2 diabetes mellitus with diabetic neuropathy, unspecified; E11.65 Type 2 diabetes mellitus with hyperglycemia; L97.521 Non-pressure chronic ulcer of other part of left foot limited to breakdown of skin; L03.116 Cellulitis of left lower limb; R60.0 Localized edema; S90.425A Blister (nonthermal), left lesser toe(s), initial encounter; N17.9 Acute kidney failure, unspecified; I10 Essential (primary) hypertension; G45.9 Transient cerebral ischemic attack, unspecified; E78.5 Hyperlipidemia, unspecified; G47.39 Other sleep apnea; E66.01 Morbid (severe) obesity due to excess calories ==

== ENCOUNTER → 2021-05-21 | Outpatient (CLI) | payer BC | LOC: WCC 15:24 | PROVIDERS: ATTEND Internal Medicine Infectious Disease | DX: E11.621 Type 2 diabetes mellitus with foot ulcer (principal); E11.40 Type 2 diabetes mellitus with diabetic neuropathy, unspecified; E11.65 Type 2 diabetes mellitus with hyperglycemia; L97.521 Non-pressure chronic ulcer of other part of left foot limited to breakdown of skin; L03.116 Cellulitis of left lower limb; S90.42 Blister (nonthermal) of toe; R60.0 Localized edema; G47.39 Other sleep apnea; N17.9 Acute kidney failure, unspecified; I10 Essential (primary) hypertension; G45.9 Transient cerebral ischemic attack, unspecified; E78.5 Hyperlipidemia, unspecified; E66.01 Morbid (severe) obesity due to excess calories ==

== ENCOUNTER → 2021-05-24 | Outpatient (CLI) | payer BC | LOC: WCC 15:30 | PROVIDERS: ATTEND Internal Medicine Infectious Disease | DX: E11.621 Type 2 diabetes mellitus with foot ulcer (principal); E11.40 Type 2 diabetes mellitus with diabetic neuropathy, unspecified; E11.65 Type 2 diabetes mellitus with hyperglycemia; L97.521 Non-pressure chronic ulcer of other part of left foot limited to breakdown of skin; L03.116 Cellulitis of left lower limb; R60.0 Localized edema; S90.425A Blister (nonthermal), left lesser toe(s), initial encounter; N17.9 Acute kidney failure, unspecified; I10 Essential (primary) hypertension; G45.9 Transient cerebral ischemic attack, unspecified; E78.5 Hyperlipidemia, unspecified; G47.39 Other sleep apnea; E66.01 Morbid (severe) obesity due to excess calories ==

== ENCOUNTER → 2021-05-28 | Outpatient (CLI) | payer BC | LOC: WCC 15:38 | PROVIDERS: ATTEND Internal Medicine Infectious Disease | DX: E11.621 Type 2 diabetes mellitus with foot ulcer (principal); E11.40 Type 2 diabetes mellitus with diabetic neuropathy, unspecified; E11.65 Type 2 diabetes mellitus with hyperglycemia; L03.116 Cellulitis of left lower limb; S90.425A Blister (nonthermal), left lesser toe(s), initial encounter; R60.0 Localized edema; L97.521 Non-pressure chronic ulcer of other part of left foot limited to breakdown of skin; N17.9 Acute kidney failure, unspecified; I10 Essential (primary) hypertension; G45.9 Transient cerebral ischemic attack, unspecified; E78.5 Hyperlipidemia, unspecified; G47.39 Other sleep apnea; E66.01 Morbid (severe) obesity due to excess calories ==

== ENCOUNTER → 2021-05-31 | Outpatient (CLI) | payer BC | LOC: WCC 15:33 | PROVIDERS: ATTEND Internal Medicine Infectious Disease | DX: E11.621 Type 2 diabetes mellitus with foot ulcer (principal); E11.40 Type 2 diabetes mellitus with diabetic neuropathy, unspecified; E11.65 Type 2 diabetes mellitus with hyperglycemia; L03.116 Cellulitis of left lower limb; L97.521 Non-pressure chronic ulcer of other part of left foot limited to breakdown of skin; R60.0 Localized edema; S90.425A Blister (nonthermal), left lesser toe(s), initial encounter; G45.9 Transient cerebral ischemic attack, unspecified; I10 Essential (primary) hypertension; N17.9 Acute kidney failure, unspecified; E78.5 Hyperlipidemia, unspecified; G47.39 Other sleep apnea; E66.01 Morbid (severe) obesity due to excess calories ==

== ENCOUNTER → 2021-06-07 | Outpatient (CLI) | payer BC | LOC: WCC 15:56 | PROVIDERS: ATTEND Internal Medicine Infectious Disease | DX: E11.621 Type 2 diabetes mellitus with foot ulcer (principal); E11.40 Type 2 diabetes mellitus with diabetic neuropathy, unspecified; E11.65 Type 2 diabetes mellitus with hyperglycemia; L03.116 Cellulitis of left lower limb; L97.521 Non-pressure chronic ulcer of other part of left foot limited to breakdown of skin; R60.0 Localized edema; N17.9 Acute kidney failure, unspecified; I10 Essential (primary) hypertension; G45.9 Transient cerebral ischemic attack, unspecified; E78.5 Hyperlipidemia, unspecified; G47.39 Other sleep apnea; E66.01 Morbid (severe) obesity due to excess calories ==

== ENCOUNTER → 2021-06-11 | Outpatient (CLI) | payer BC | LOC: WCC 15:24 | PROVIDERS: ATTEND Internal Medicine Infectious Disease | DX: E11.621 Type 2 diabetes mellitus with foot ulcer (principal); E11.40 Type 2 diabetes mellitus with diabetic neuropathy, unspecified; E11.65 Type 2 diabetes mellitus with hyperglycemia; L97.521 Non-pressure chronic ulcer of other part of left foot limited to breakdown of skin; L03.116 Cellulitis of left lower limb; R60.0 Localized edema; N17.9 Acute kidney failure, unspecified; I10 Essential (primary) hypertension; E78.5 Hyperlipidemia, unspecified; G45.9 Transient cerebral ischemic attack, unspecified; G47.39 Other sleep apnea; E66.01 Morbid (severe) obesity due to excess calories ==

== ENCOUNTER → 2021-06-14 | Outpatient (CLI) | payer BC | LOC: WCC 15:33 | PROVIDERS: ATTEND Internal Medicine Infectious Disease | DX: E11.621 Type 2 diabetes mellitus with foot ulcer (principal); E11.40 Type 2 diabetes mellitus with diabetic neuropathy, unspecified; E11.65 Type 2 diabetes mellitus with hyperglycemia; L97.521 Non-pressure chronic ulcer of other part of left foot limited to breakdown of skin; L03.116 Cellulitis of left lower limb; R60.0 Localized edema; N17.9 Acute kidney failure, unspecified; I10 Essential (primary) hypertension; G45.9 Transient cerebral ischemic attack, unspecified; E78.5 Hyperlipidemia, unspecified; G47.39 Other sleep apnea; E66.01 Morbid (severe) obesity due to excess calories ==

== ENCOUNTER → 2021-06-18 | Outpatient (CLI) | payer BC | LOC: WCC 15:45 | PROVIDERS: ATTEND Internal Medicine Infectious Disease | DX: E11.621 Type 2 diabetes mellitus with foot ulcer (principal); E11.40 Type 2 diabetes mellitus with diabetic neuropathy, unspecified; E11.65 Type 2 diabetes mellitus with hyperglycemia; L97.521 Non-pressure chronic ulcer of other part of left foot limited to breakdown of skin; L03.116 Cellulitis of left lower limb; R60.0 Localized edema; N17.9 Acute kidney failure, unspecified; I10 Essential (primary) hypertension; E78.5 Hyperlipidemia, unspecified; G45.9 Transient cerebral ischemic attack, unspecified; G47.39 Other sleep apnea; E66.01 Morbid (severe) obesity due to excess calories ==

== ENCOUNTER → 2021-06-21 | Outpatient (CLI) | payer BC | LOC: WCC 03:00 | PROVIDERS: ATTEND Internal Medicine Infectious Disease | DX: E11.621 Type 2 diabetes mellitus with foot ulcer (principal); E11.40 Type 2 diabetes mellitus with diabetic neuropathy, unspecified; E11.65 Type 2 diabetes mellitus with hyperglycemia; L03.116 Cellulitis of left lower limb; L97.521 Non-pressure chronic ulcer of other part of left foot limited to breakdown of skin; R60.0 Localized edema; N17.9 Acute kidney failure, unspecified; I10 Essential (primary) hypertension; E78.5 Hyperlipidemia, unspecified; G47.39 Other sleep apnea; G45.9 Transient cerebral ischemic attack, unspecified; E66.01 Morbid (severe) obesity due to excess calories ==

== ENCOUNTER → 2021-06-25 | Outpatient (CLI) | payer BC | LOC: WCC 16:19 | PROVIDERS: ATTEND Internal Medicine Infectious Disease | DX: E11.621 Type 2 diabetes mellitus with foot ulcer (principal); E11.40 Type 2 diabetes mellitus with diabetic neuropathy, unspecified; E11.65 Type 2 diabetes mellitus with hyperglycemia; L97.521 Non-pressure chronic ulcer of other part of left foot limited to breakdown of skin; L03.116 Cellulitis of left lower limb; R60.0 Localized edema; I10 Essential (primary) hypertension; N17.9 Acute kidney failure, unspecified; E78.5 Hyperlipidemia, unspecified; G45.9 Transient cerebral ischemic attack, unspecified; G47.39 Other sleep apnea; E66.01 Morbid (severe) obesity due to excess calories ==

== ENCOUNTER → 2021-06-28 | Outpatient (CLI) | payer BC | LOC: WCC 15:11 | PROVIDERS: ATTEND Internal Medicine Infectious Disease | DX: E11.621 Type 2 diabetes mellitus with foot ulcer (principal); E11.40 Type 2 diabetes mellitus with diabetic neuropathy, unspecified; E11.65 Type 2 diabetes mellitus with hyperglycemia; L97.521 Non-pressure chronic ulcer of other part of left foot limited to breakdown of skin; L03.116 Cellulitis of left lower limb; R60.0 Localized edema; N17.9 Acute kidney failure, unspecified; I10 Essential (primary) hypertension; G45.9 Transient cerebral ischemic attack, unspecified; E78.5 Hyperlipidemia, unspecified; G47.39 Other sleep apnea; E66.01 Morbid (severe) obesity due to excess calories ==

== ENCOUNTER → 2021-07-02 | Outpatient (CLI) | payer BC | LOC: WCC 16:03 | PROVIDERS: ATTEND Internal Medicine Infectious Disease | DX: E11.621 Type 2 diabetes mellitus with foot ulcer (principal); E11.40 Type 2 diabetes mellitus with diabetic neuropathy, unspecified; E11.65 Type 2 diabetes mellitus with hyperglycemia; L97.521 Non-pressure chronic ulcer of other part of left foot limited to breakdown of skin; L03.116 Cellulitis of left lower limb; R60.0 Localized edema; N17.9 Acute kidney failure, unspecified; I10 Essential (primary) hypertension; G47.39 Other sleep apnea; G45.9 Transient cerebral ischemic attack, unspecified; E78.5 Hyperlipidemia, unspecified; E66.01 Morbid (severe) obesity due to excess calories ==

== ENCOUNTER → 2021-07-05 | Outpatient (CLI) | payer BC | LOC: WCC 15:38 | PROVIDERS: ATTEND Internal Medicine Infectious Disease | DX: E11.621 Type 2 diabetes mellitus with foot ulcer (principal); E11.40 Type 2 diabetes mellitus with diabetic neuropathy, unspecified; E11.65 Type 2 diabetes mellitus with hyperglycemia; L97.521 Non-pressure chronic ulcer of other part of left foot limited to breakdown of skin; L03.116 Cellulitis of left lower limb; R60.0 Localized edema; N17.9 Acute kidney failure, unspecified; I10 Essential (primary) hypertension; G45.9 Transient cerebral ischemic attack, unspecified; E78.5 Hyperlipidemia, unspecified; G47.39 Other sleep apnea; E66.01 Morbid (severe) obesity due to excess calories ==

== ENCOUNTER → 2021-07-12 | Outpatient (CLI) | payer BC | LOC: WCC 15:50 | PROVIDERS: ATTEND Internal Medicine Infectious Disease | DX: E11.621 Type 2 diabetes mellitus with foot ulcer (principal); E11.40 Type 2 diabetes mellitus with diabetic neuropathy, unspecified; E11.65 Type 2 diabetes mellitus with hyperglycemia; L97.521 Non-pressure chronic ulcer of other part of left foot limited to breakdown of skin; L03.116 Cellulitis of left lower limb; R60.0 Localized edema; N17.9 Acute kidney failure, unspecified; I10 Essential (primary) hypertension; G45.9 Transient cerebral ischemic attack, unspecified; E78.5 Hyperlipidemia, unspecified; G47.39 Other sleep apnea; E66.01 Morbid (severe) obesity due to excess calories ==

== ENCOUNTER → 2021-07-19 | Outpatient (CLI) | payer BC | LOC: WCC 15:31 | PROVIDERS: ATTEND Internal Medicine Infectious Disease | DX: E11.621 Type 2 diabetes mellitus with foot ulcer (principal); E11.40 Type 2 diabetes mellitus with diabetic neuropathy, unspecified; E11.65 Type 2 diabetes mellitus with hyperglycemia; L03.116 Cellulitis of left lower limb; R60.0 Localized edema; N17.9 Acute kidney failure, unspecified; I10 Essential (primary) hypertension; G45.9 Transient cerebral ischemic attack, unspecified; E78.5 Hyperlipidemia, unspecified; G47.39 Other sleep apnea; E66.01 Morbid (severe) obesity due to excess calories ==

== ENCOUNTER → 2021-07-23 | Outpatient (CLI) | payer BC | LOC: WCC 16:06 | PROVIDERS: ATTEND Internal Medicine Infectious Disease | DX: E11.621 Type 2 diabetes mellitus with foot ulcer (principal); E11.40 Type 2 diabetes mellitus with diabetic neuropathy, unspecified; E11.65 Type 2 diabetes mellitus with hyperglycemia; L03.116 Cellulitis of left lower limb; L97.521 Non-pressure chronic ulcer of other part of left foot limited to breakdown of skin; R60.0 Localized edema; N17.9 Acute kidney failure, unspecified; I10 Essential (primary) hypertension; G45.9 Transient cerebral ischemic attack, unspecified; E78.5 Hyperlipidemia, unspecified; G47.39 Other sleep apnea; E66.01 Morbid (severe) obesity due to excess calories ==

== ENCOUNTER → 2021-07-26 | Outpatient (CLI) | payer BC | LOC: WCC 15:23 | PROVIDERS: ATTEND Internal Medicine Infectious Disease | DX: E11.621 Type 2 diabetes mellitus with foot ulcer (principal); E11.40 Type 2 diabetes mellitus with diabetic neuropathy, unspecified; E11.65 Type 2 diabetes mellitus with hyperglycemia; L97.521 Non-pressure chronic ulcer of other part of left foot limited to breakdown of skin; L03.116 Cellulitis of left lower limb; R60.0 Localized edema; N17.9 Acute kidney failure, unspecified; I10 Essential (primary) hypertension; G45.9 Transient cerebral ischemic attack, unspecified; E78.5 Hyperlipidemia, unspecified; G47.39 Other sleep apnea; E66.01 Morbid (severe) obesity due to excess calories ==

== ENCOUNTER → 2021-07-30 | Outpatient (CLI) | payer BC | LOC: WCC 15:46 | PROVIDERS: ATTEND Internal Medicine Infectious Disease | DX: E11.621 Type 2 diabetes mellitus with foot ulcer (principal); E11.40 Type 2 diabetes mellitus with diabetic neuropathy, unspecified; E11.65 Type 2 diabetes mellitus with hyperglycemia; L03.116 Cellulitis of left lower limb; L97.521 Non-pressure chronic ulcer of other part of left foot limited to breakdown of skin; R60.0 Localized edema; N17.9 Acute kidney failure, unspecified; I10 Essential (primary) hypertension; G45.9 Transient cerebral ischemic attack, unspecified; E78.5 Hyperlipidemia, unspecified; G47.39 Other sleep apnea; E66.01 Morbid (severe) obesity due to excess calories ==

== ENCOUNTER → 2021-08-02 | Outpatient (CLI) | payer BC | LOC: WCC 16:00 | PROVIDERS: ATTEND Internal Medicine Infectious Disease | DX: E11.621 Type 2 diabetes mellitus with foot ulcer (principal); E11.40 Type 2 diabetes mellitus with diabetic neuropathy, unspecified; E11.65 Type 2 diabetes mellitus with hyperglycemia; L03.116 Cellulitis of left lower limb; L97.521 Non-pressure chronic ulcer of other part of left foot limited to breakdown of skin; R60.0 Localized edema; N17.9 Acute kidney failure, unspecified; I10 Essential (primary) hypertension; G45.9 Transient cerebral ischemic attack, unspecified; E78.5 Hyperlipidemia, unspecified; G47.39 Other sleep apnea; E66.01 Morbid (severe) obesity due to excess calories ==

== ENCOUNTER → 2021-08-06 | Outpatient (CLI) | payer BC | LOC: WCC 16:44 | PROVIDERS: ATTEND Internal Medicine Infectious Disease | DX: E11.621 Type 2 diabetes mellitus with foot ulcer (principal); E11.40 Type 2 diabetes mellitus with diabetic neuropathy, unspecified; E11.65 Type 2 diabetes mellitus with hyperglycemia; L97.521 Non-pressure chronic ulcer of other part of left foot limited to breakdown of skin; L03.116 Cellulitis of left lower limb; R60.0 Localized edema; N17.9 Acute kidney failure, unspecified; I10 Essential (primary) hypertension; G45.9 Transient cerebral ischemic attack, unspecified; E78.5 Hyperlipidemia, unspecified; G47.39 Other sleep apnea; E66.01 Morbid (severe) obesity due to excess calories ==

== ENCOUNTER → 2021-08-09 | Outpatient (CLI) | payer BC | LOC: WCC 13:55 | PROVIDERS: ATTEND Internal Medicine Infectious Disease | DX: E11.621 Type 2 diabetes mellitus with foot ulcer (principal); E11.40 Type 2 diabetes mellitus with diabetic neuropathy, unspecified; E11.65 Type 2 diabetes mellitus with hyperglycemia; L97.521 Non-pressure chronic ulcer of other part of left foot limited to breakdown of skin; L03.116 Cellulitis of left lower limb; R60.0 Localized edema; G45.9 Transient cerebral ischemic attack, unspecified; N17.9 Acute kidney failure, unspecified; I10 Essential (primary) hypertension; E78.5 Hyperlipidemia, unspecified; G47.39 Other sleep apnea; E66.01 Morbid (severe) obesity due to excess calories ==

== ENCOUNTER → 2021-08-20 | Outpatient (CLI) | payer BC | LOC: WCC 15:11 | PROVIDERS: ATTEND Internal Medicine Infectious Disease | DX: E11.621 Type 2 diabetes mellitus with foot ulcer (principal); E11.40 Type 2 diabetes mellitus with diabetic neuropathy, unspecified; E11.65 Type 2 diabetes mellitus with hyperglycemia; L97.521 Non-pressure chronic ulcer of other part of left foot limited to breakdown of skin; L03.116 Cellulitis of left lower limb; R60.0 Localized edema; N17.9 Acute kidney failure, unspecified; I10 Essential (primary) hypertension; G45.9 Transient cerebral ischemic attack, unspecified; E78.5 Hyperlipidemia, unspecified; G47.39 Other sleep apnea; E66.01 Morbid (severe) obesity due to excess calories ==

== ENCOUNTER → 2021-08-23 | Outpatient (CLI) | payer BC | LOC: WCC 14:48 | PROVIDERS: ATTEND Internal Medicine Infectious Disease | DX: E11.621 Type 2 diabetes mellitus with foot ulcer (principal); E11.40 Type 2 diabetes mellitus with diabetic neuropathy, unspecified; E11.65 Type 2 diabetes mellitus with hyperglycemia; L97.521 Non-pressure chronic ulcer of other part of left foot limited to breakdown of skin; L03.116 Cellulitis of left lower limb; R60.0 Localized edema; N17.9 Acute kidney failure, unspecified; I10 Essential (primary) hypertension; G45.9 Transient cerebral ischemic attack, unspecified; E78.5 Hyperlipidemia, unspecified; G47.39 Other sleep apnea; E66.01 Morbid (severe) obesity due to excess calories ==

== ENCOUNTER → 2021-09-25 | Outpatient (CLI) | payer BC ==
[~2021-09-25] MED LIST changes: +MINERAL OIL/PETROLAT/GLYCERI 6OZ BTL ONE; +MUPIROCIN 2% OINT 22 GM TUBE ONE; +TRIAMCINOLONE ACET 0.1% CREAM 15 GM TUBE ONE
== END ==
LOC: WCC 13:50
PROVIDERS: ATTEND Internal Medicine Infectious Disease
DX: E11.621 Type 2 diabetes mellitus with foot ulcer (principal); E11.40 Type 2 diabetes mellitus with diabetic neuropathy, unspecified; E11.65 Type 2 diabetes mellitus with hyperglycemia; L97.521 Non-pressure chronic ulcer of other part of left foot limited to breakdown of skin; L03.116 Cellulitis of left lower limb; R60.0 Localized edema; N17.9 Acute kidney failure, unspecified; G45.9 Transient cerebral ischemic attack, unspecified; I10 Essential (primary) hypertension; E78.5 Hyperlipidemia, unspecified; G47.39 Other sleep apnea; E66.01 Morbid (severe) obesity due to excess calories

== ENCOUNTER 2022-04-25 17:48 | Inpatient (IN) | payer BC ==
[~2022-04-25] VITALS: Ht 195.6 cm; Wt 219.9 kg
[~2022-04-25 17:48] MED LIST changes: -MINERAL OIL/PETROLAT/GLYCERI 6OZ BTL ONE; -MUPIROCIN 2% OINT 22 GM TUBE ONE; -TRIAMCINOLONE ACET 0.1% CREAM 15 GM TUBE ONE
[2022-04-25] MEDS ORDERED: ACETAMINOPHEN 325 MG TAB PO ONE (18:45)
[2022-04-25 19:08] LABS: BASOPHILS # (AUTO) 0.1 (0.0-0.1); BASOPHILS % 0.3 % (0.0-1.0); HEMATOCRIT 35.2 % (38.2-49.6); HEMOGLOBIN 10.9 g/dL (14.0-18.0); LYMPHOCYTES # (AUTO) 0.8 (1.0-3.2); LYMPHOCYTES % 3.7 % (18.0-39.1); MEAN CORPUSCULAR HEMOGLOBIN 26.6 pg (28-32); MEAN CORPUSCULAR VOLUME 85.9 fL (81-99); MONOCYTES % 4.6 % (4.4-11.3); NEUTROPHILS % 90.4 % (38.7-80.0); PLATELET COUNT 297 x10e3/uL (140-360); RED CELL DISTRIBUTION WIDTH 14.9 % (11.7-14.4)
[2022-04-25 19:30] LABS: ALBUMIN 2.4 g/dL (3.5-5.0); ALBUMIN/GLOBULIN RATIO 0.5 (0.8-2.0); CALCIUM 8.3 mg/dL (8.4-10.2); CREATININE, SERUM 3.53 mg/dL (0.72-1.25)
[2022-04-25 19:55] LABS: CLARITY,URINE SL CLOUDY (CLEAR); COLOR,URINE YELLOW (YELLOW)
[2022-04-25 19:56] LABS: KETONES,URINE NEGATIVE (NEGATIVE); LEUKOCYTE ESTERASE ,URINE NEGATIVE (NEGATIVE); NITRITE,URINE NEGATIVE (NEGATIVE); PROTEIN,URINE DIPSTICK >=300 (NEGATIVE); URINE UROBILINOGEN 0.2 mg/dL (0.2 - 1)
[2022-04-25 20:02] LABS: BACTERIA,URINE FEW /HPF
[2022-04-25 20:03] LABS: EPITHELIAL CELLS,URINE RARE /LPF
[2022-04-25] MEDS ORDERED: CEFEPIME HCL 1 GM VIAL ONE (20:16)
[2022-04-25] MEDS ORDERED: ONDANSETRON HCL INJ 2MG/ML 2ML 2 MG/ML VIAL IV PRN (20:30)
[2022-04-25] MEDS ORDERED: SODIUM CHLORIDE FLUSH 10 ML SYR INJ PRN (20:30)
[2022-04-25] MEDS ORDERED: Vancomycin IV 1 GM in SODIUM CHLORIDE 0.9% 250ML 250 ML IV ONE (20:30)
[2022-04-25] MEDS ORDERED: Vancomycin IV 1 GM VIAL ONE (20:57)
[2022-04-25] MEDS ORDERED: SODIUM CHLORIDE 0.9% 250ML 250 ML ONE (20:57)
[2022-04-25] MEDS ORDERED: SODIUM CHLORIDE 0.9% 1000ML 500 ML IV ONE ×2 (21:15→22:45)
[2022-04-25] MEDS ORDERED: SODIUM CHLORIDE 0.9% 500ML 500 ML ONE ×2 (21:23→22:38)
[2022-04-25] MEDS ORDERED: SODIUM CHLORIDE 0.9% 1000ML 1,000 ML IV ONE (23:15)
[2022-04-25] MEDS ORDERED: DEXTROSE 50% SYRINGE 50 ML IV PRN (23:15)
[2022-04-25 23:50] VITALS: BP 120/63
[2022-04-26] MEDS ORDERED: LISINOPRIL-HCT1 EAC2 (02:16)
[2022-04-26 04:00] VITALS: BP 131/62
[2022-04-26 06:32] LABS: BASOPHILS # (AUTO) 0.1 (0.0-0.1); BASOPHILS % 0.4 % (0.0-1.0); HEMATOCRIT 30.5 % (38.2-49.6); HEMOGLOBIN 9.4 g/dL (14.0-18.0); LYMPHOCYTES # (AUTO) 1.5 (1.0-3.2); MEAN CORPUSCULAR HEMOGLOBIN 26.8 pg (28-32); MEAN CORPUSCULAR HGB CONC 30.8 g/dL (31-35); MEAN CORPUSCULAR VOLUME 86.9 fL (81-99); MONOCYTES % 4.6 % (4.4-11.3); NEUTROPHILS # (AUTO) 18.9 (2.1-6.9); NEUTROPHILS % 87.2 % (38.7-80.0); PLATELET COUNT 263 x10e3/uL (140-360); RED BLOOD COUNT 3.51 x10e6/uL (4.3-5.7); RED CELL DISTRIBUTION WIDTH 15.1 % (11.7-14.4)
[2022-04-26 07:01] LABS: ALBUMIN/GLOBULIN RATIO 0.5 (0.8-2.0); ANION GAP 15.7 mmol/L (8-16); CALCIUM 7.6 mg/dL (8.4-10.2); CREATININE, SERUM 3.89 mg/dL (0.72-1.25); POTASSIUM 4.7 mmol/L (3.5-5.1)
[2022-04-26] MEDS: ACETAMINOPHEN 325 MG TAB PO PRN ×2 (07:17→18:33)
[2022-04-26] MEDS: INSULIN REGULAR, HUMAN 100 UNIT/1 ML SQ SCH ×4 (07:30→21:00)
[2022-04-26 09:13] VITALS: BP 106/59
[2022-04-26 09:17] VITALS: BP 106/59
[2022-04-26 12:00] VITALS: BP 119/56
[2022-04-26 16:00] VITALS: BP 117/65
[2022-04-26] MEDS: SODIUM BICARBONATE 650 MG TAB PO SCH (17:55)
[2022-04-26 20:00] VITALS: BP 119/69
[2022-04-27] VITALS (7 sets, daily range): BP systolic 111–138; BP diastolic 61–86
[2022-04-27] MEDS: ACETAMINOPHEN 325 MG TAB PO PRN ×3 (03:39→18:38)
[2022-04-27 06:25] LABS: HEMATOCRIT 30.5 % (38.2-49.6); HEMOGLOBIN 9.4 g/dL (14.0-18.0)
[2022-04-27 06:53] LABS: ANION GAP 16.7 mmol/L (8-16); CALCIUM 7.9 mg/dL (8.4-10.2); CREATININE, SERUM 4.51 mg/dL (0.72-1.25); PHOSPHORUS 4.7 MG/DL (2.3-4.7); POTASSIUM 4.7 mmol/L (3.5-5.1)
[2022-04-27] MEDS: INSULIN REGULAR, HUMAN 100 UNIT/1 ML SQ SCH ×4 (07:30→17:57)
[2022-04-27] MEDS: SODIUM BICARBONATE 650 MG TAB PO SCH ×3 (09:13→20:42)
[2022-04-27] MEDS: CEFTRIAXONE 2 GM in SODIUM CHLORIDE 0.9% 100 ML IV SCH (09:13)
[2022-04-27] MEDS ORDERED: Vancomycin IV 1 GM in SODIUM CHLORIDE 0.9% 250ML 250 ML IV ONE (15:30)
[2022-04-28] VITALS (10 sets, daily range): BP systolic 131–181; BP diastolic 70–83
[2022-04-28] MEDS: ACETAMINOPHEN 325 MG TAB PO PRN ×2 (00:16→07:54)
[2022-04-28 06:31] LABS: BASOPHILS % 0.2 % (0.0-1.0); EOSINOPHILS # (AUTO) 0.1 (0.0-0.4); EOSINOPHILS % 0.8 % (0.0-6.0); HEMATOCRIT 29.4 % (38.2-49.6); LYMPHOCYTES # (AUTO) 1.5 (1.0-3.2); LYMPHOCYTES % 9.1 % (18.0-39.1); MEAN CORPUSCULAR HEMOGLOBIN 26.2 pg (28-32); MEAN CORPUSCULAR HGB CONC 30.6 g/dL (31-35); MEAN CORPUSCULAR VOLUME 85.7 fL (81-99); MONOCYTES # (AUTO) 0.8 (0.2-0.8); MONOCYTES % 4.9 % (4.4-11.3); NEUTROPHILS # (AUTO) 13.9 (2.1-6.9); PLATELET COUNT 279 x10e3/uL (140-360); RED BLOOD COUNT 3.43 x10e6/uL (4.3-5.7); RED CELL DISTRIBUTION WIDTH 15.4 % (11.7-14.4)
[2022-04-28 06:55] LABS: ANION GAP 16.4 mmol/L (8-16); CREATININE, SERUM 4.98 mg/dL (0.72-1.25); PHOSPHORUS 5.1 MG/DL (2.3-4.7); POTASSIUM 4.4 mmol/L (3.5-5.1)
[2022-04-28] MEDS: INSULIN REGULAR, HUMAN 100 UNIT/1 ML SQ SCH ×4 (07:30→21:13)
[2022-04-28] MEDS: CEFTRIAXONE 2 GM in SODIUM CHLORIDE 0.9% 100 ML IV SCH (08:39)
[2022-04-28] MEDS: SODIUM BICARBONATE 650 MG TAB PO SCH ×3 (08:40→21:05)
[2022-04-28] MEDS: LINEZOLID 600 MG/D5W 300ML 300 ML IV SCH ×2 (14:03→21:04)
[2022-04-28] MEDS ORDERED: SODIUM CHLORIDE 0.9% 250ML 250 ML ONE (14:32)
[2022-04-28 14:43] LABS: ANION GAP 16.8 mmol/L (8-16); CALCIUM 8.2 mg/dL (8.4-10.2); CREATININE, SERUM 4.81 mg/dL (0.72-1.25); POTASSIUM 4.8 mmol/L (3.5-5.1)
[2022-04-28] MEDS: HEPARIN SOD (PORCINE) 5,000 UNIT/ML VIAL SC SCH (21:13)
[2022-04-29] VITALS (7 sets, daily range): BP systolic 135–160; BP diastolic 65–77
[2022-04-29] MEDS: ACETAMINOPHEN 325 MG TAB PO PRN ×3 (02:00→21:07)
[2022-04-29 05:47] LABS: ALBUMIN 1.8 g/dL (3.5-5.0); ALBUMIN/GLOBULIN RATIO 0.4 (0.8-2.0); ANION GAP 17.3 mmol/L (8-16); CALCIUM 7.9 mg/dL (8.4-10.2); CREATININE, SERUM 4.35 mg/dL (0.72-1.25); POTASSIUM 4.3 mmol/L (3.5-5.1)
[2022-04-29] MEDS: INSULIN REGULAR, HUMAN 100 UNIT/1 ML SQ SCH ×4 (07:30→20:16)
[2022-04-29 08:57] LABS: HIV 1&2 AB SCREEN NON-REACTIVE (NONREACTIVE)
[2022-04-29] MEDS: HEPARIN SOD (PORCINE) 5,000 UNIT/ML VIAL SC SCH ×2 (09:00→21:05)
[2022-04-29] MEDS: LINEZOLID 600 MG/D5W 300ML 300 ML IV SCH (09:30)
[2022-04-29] MEDS: SODIUM BICARBONATE 650 MG TAB PO SCH ×3 (09:31→21:01)
[2022-04-29] MEDS: FUROSEMIDE INJ 10 MG/ML 4 ML VIAL IV SCH (09:31)
[2022-04-29] MEDS: CEFTRIAXONE 2 GM in SODIUM CHLORIDE 0.9% 100 ML IV SCH (09:31)
[2022-04-29 10:18] LABS: % IRON SATURATION 9 % (15-50); IRON 19 ug/dL (65-175); TOTAL IRON BINDING CAPACITY 209 ug/dL (261-478); TRANSFERRIN 149 mg/dL (174-364)
[2022-04-29 10:50] LABS: INR 1.09; PROTHROMBIN TIME 15.1 seconds (11.9-14.5)
[2022-04-29 10:52] LABS: PARTIAL THROMBOPLASTIN TIME 52.8 seconds (23.8-35.5)
[2022-04-29 12:23] LABS: BASOPHILS % 0.3 % (0.0-1.0); EOSINOPHILS # (AUTO) 0.1 (0.0-0.4); EOSINOPHILS % 1.2 % (0.0-6.0); HEMATOCRIT 28.5 % (38.2-49.6); HEMOGLOBIN 8.7 g/dL (14.0-18.0); LYMPHOCYTES # (AUTO) 0.8 (1.0-3.2); MEAN CORPUSCULAR HEMOGLOBIN 26.4 pg (28-32); MEAN CORPUSCULAR HGB CONC 30.5 g/dL (31-35); MEAN CORPUSCULAR VOLUME 86.4 fL (81-99); MONOCYTES # (AUTO) 0.7 (0.2-0.8); MONOCYTES % 7.1 % (4.4-11.3); NEUTROPHILS # (AUTO) 8.1 (2.1-6.9); NEUTROPHILS % 82.6 % (38.7-80.0); PLATELET COUNT 305 x10e3/uL (140-360); RED CELL DISTRIBUTION WIDTH 15.6 % (11.7-14.4)
[2022-04-29] MEDS ORDERED: SODIUM CHLORIDE 0.9% 250ML 250 ML ONE (12:30)
[2022-04-29] MEDS ORDERED: LIDOCAINE HCL 1% LOCAL INJ 20 ML VIAL ONE (12:30)
[2022-04-29] MEDS ORDERED: MIDAZOLAM HCL 2 MG/2 ML VIAL ONE (12:45)
[2022-04-29] MEDS ORDERED: FENTANYL CITRATE/PF 100MCG/2 ML INJ ONE (12:46)
[2022-04-29 15:10] LABS: TOTAL PROTEIN 24HR, URINE 15686.7 mg/24hr (50-100); TOTAL PROTEIN, URINE 369.1 mg/dL (1-14)
[2022-04-29 16:24] LABS: CREATININE,URINE RANDOM 44.78 mg/dL (63-166)
[2022-04-29 16:56] LABS: TOTAL PROTEIN, URINE 366.2 mg/dL (1-14)
[2022-04-29] MEDS: LINEZOLID 600 MG TAB PO SCH (21:01)
[2022-04-30 00:03] VITALS: BP 149/71
[2022-04-30 03:51] VITALS: BP 146/76
[2022-04-30] MEDS: INSULIN REGULAR, HUMAN 100 UNIT/1 ML SQ SCH ×4 (07:30→20:44)
[2022-04-30 07:54] VITALS: BP 157/78
[2022-04-30 09:00] VITALS: BP 157/78
[2022-04-30] MEDS: FUROSEMIDE INJ 10 MG/ML 4 ML VIAL IV SCH (09:17)
[2022-04-30] MEDS: LINEZOLID 600 MG TAB PO SCH ×2 (09:17→21:14)
[2022-04-30] MEDS: CEFTRIAXONE 2 GM in SODIUM CHLORIDE 0.9% 100 ML IV SCH (09:18)
[2022-04-30] MEDS: SODIUM BICARBONATE 650 MG TAB PO SCH ×3 (09:18→21:14)
[2022-04-30] MEDS: HEPARIN SOD (PORCINE) 5,000 UNIT/ML VIAL SC SCH ×2 (09:34→21:20)
[2022-04-30] MEDS ORDERED: LINEZOLID600 MG PO (10:06)
[2022-04-30] MEDS ORDERED: CEFTRIAXON1 GM/50 M1 IV (10:06)
[2022-04-30 11:40] VITALS: BP 147/80
[2022-04-30] MEDS: ACETAMINOPHEN 325 MG TAB PO PRN (21:15)
[2022-05-01] VITALS (7 sets, daily range): BP systolic 150–161; BP diastolic 70–94
[2022-05-01 07:29] LABS: ALBUMIN 1.9 g/dL (3.5-5.0); ALBUMIN/GLOBULIN RATIO 0.4 (0.8-2.0); ANION GAP 15.1 mmol/L (8-16); CALCIUM 8.1 mg/dL (8.4-10.2); CREATININE, SERUM 3.56 mg/dL (0.72-1.25); POTASSIUM 4.1 mmol/L (3.5-5.1)
[2022-05-01] MEDS: INSULIN REGULAR, HUMAN 100 UNIT/1 ML SQ SCH ×4 (07:30→20:50)
[2022-05-01] MEDS: CEFTRIAXONE 2 GM in SODIUM CHLORIDE 0.9% 100 ML IV SCH (08:44)
[2022-05-01] MEDS: FUROSEMIDE 40 MG TAB PO SCH (08:46)
[2022-05-01] MEDS: SODIUM BICARBONATE 650 MG TAB PO SCH ×3 (08:47→20:50)
[2022-05-01] MEDS: LINEZOLID 600 MG TAB PO SCH ×2 (08:47→20:50)
[2022-05-01] MEDS: HEPARIN SOD (PORCINE) 5,000 UNIT/ML VIAL SC SCH ×2 (08:52→21:00)
[2022-05-01] MEDS ORDERED: KETOROLAC TROMETHAMINE 0.5% OP SOLN 3 ML BTL OP PRN ×2 (10:00)
[2022-05-01] MEDS: CHOLESTYRAMINE 4 GM PACKET PO SCH ×2 (10:42→17:53)
[2022-05-01] MEDS: IRON SUCROSE 100 MG in SODIUM CHLORIDE 0.9% 100 ML 100 ML IV SCH (11:18)
[2022-05-01 14:40] LABS: CREATININE,URINE RANDOM 53.41 mg/dL (63-166)
[2022-05-01 15:13] LABS: ALPHA 2 GLOBULIN URINE PEP 12.1 % (.)
[2022-05-02] VITALS: BP 150/70
[2022-05-02 05:00] VITALS: BP 151/74
[2022-05-02 06:45] LABS: BASOPHILS # (AUTO) 0.1 (0.0-0.1); BASOPHILS % 0.8 % (0.0-1.0); EOSINOPHILS # (AUTO) 0.6 (0.0-0.4); EOSINOPHILS % 9.8 % (0.0-6.0); HEMATOCRIT 31.5 % (38.2-49.6); HEMOGLOBIN 9.7 g/dL (14.0-18.0); LYMPHOCYTES # (AUTO) 1.8 (1.0-3.2); LYMPHOCYTES % 27.8 % (18.0-39.1); MEAN CORPUSCULAR HEMOGLOBIN 26.4 pg (28-32); MEAN CORPUSCULAR HGB CONC 30.8 g/dL (31-35); MEAN CORPUSCULAR VOLUME 85.8 fL (81-99); MONOCYTES # (AUTO) 0.6 (0.2-0.8); MONOCYTES % 10.1 % (4.4-11.3); NEUTROPHILS # (AUTO) 3.2 (2.1-6.9); NEUTROPHILS % 49.6 % (38.7-80.0); PLATELET COUNT 410 x10e3/uL (140-360); RED BLOOD COUNT 3.67 x10e6/uL (4.3-5.7); RED CELL DISTRIBUTION WIDTH 15.3 % (11.7-14.4)
[2022-05-02] MEDS: INSULIN REGULAR, HUMAN 100 UNIT/1 ML SQ SCH ×2 (07:30→11:20)
[2022-05-02 07:38] VITALS: BP 142/72
[2022-05-02 08:35] VITALS: BP 142/72
[2022-05-02] MEDS: LINEZOLID 600 MG TAB PO SCH (08:50)
[2022-05-02] MEDS: SODIUM BICARBONATE 650 MG TAB PO SCH (08:50)
[2022-05-02] MEDS: CHOLESTYRAMINE 4 GM PACKET PO SCH (08:51)
[2022-05-02] MEDS: HEPARIN SOD (PORCINE) 5,000 UNIT/ML VIAL SC SCH (08:57)
[2022-05-02] MEDS: FUROSEMIDE 40 MG TAB PO SCH (08:58)
[2022-05-02] MEDS: IRON SUCROSE 100 MG in SODIUM CHLORIDE 0.9% 100 ML 100 ML IV SCH (09:57)
[2022-05-02] MEDS ORDERED: SODIUM CHLORIDE 0.9% 250ML 250 ML ONE (10:14)
[2022-05-02 11:35] VITALS: BP 162/78
[2022-05-02] MEDS ORDERED: ONDANSETRON HCL 4 MG ORAL DISINTEGRATING TAB PO PRN (13:30)
[2022-05-02] MEDS ORDERED: CHOLESTYRAMI239.4 GM PO (14:15)
[2022-05-02] MEDS ORDERED: LISINOPRIL10 MG PO (14:20)
[2022-05-04] MEDS ORDERED: FERROUS SULFATE 325 MG TAB PO SCH (09:00)
== END 2022-05-02 14:55 | disposition home or self-care (01) | DRG 871 ==
LOC: ER 18:11 → ERHOLD 20:34 → MED/SURG2 04-26 00:19
PROVIDERS: ADMIT Internal Medicine; ATTEND Internal Medicine
PROC: 3E03329 Introduction of Other Anti-infective into Peripheral Vein, Percutaneous Approach (ICD-10-PCS; 2022-04-27)
PROC: 009U3ZX Drainage of Spinal Canal, Percutaneous Approach, Diagnostic (ICD-10-PCS; principal; 2022-04-29)
PROC: 0JH63XZ Insertion of Tunneled Vascular Access Device into Chest Subcutaneous Tissue and Fascia, Percutaneous Approach (ICD-10-PCS; 2022-04-29)
PROC: 02HV33Z Insertion of Infusion Device into Superior Vena Cava, Percutaneous Approach (ICD-10-PCS; 2022-04-29)
PROC: 3E04329 Introduction of Other Anti-infective into Central Vein, Percutaneous Approach (ICD-10-PCS; 2022-04-29)
DX: A41.9 Sepsis, unspecified organism (principal); G93.41 Metabolic encephalopathy; N17.0 Acute kidney failure with tubular necrosis; N18.6 End stage renal disease; Z68.43 Body mass index [BMI] 50.0-59.9, adult; L03.116 Cellulitis of left lower limb; L03.115 Cellulitis of right lower limb; N17.9 Acute kidney failure, unspecified; N18.4 Chronic kidney disease, stage 4 (severe); L97.518 Non-pressure chronic ulcer of other part of right foot with other specified severity; I12.0 Hypertensive chronic kidney disease with stage 5 chronic kidney disease or end stage renal disease; E87.2 Acidosis; L40.9 Psoriasis, unspecified; Z89.422 Acquired absence of other left toe(s); E66.01 Morbid (severe) obesity due to excess calories; E11.22 Type 2 diabetes mellitus with diabetic chronic kidney disease; R60.0 Localized edema; Z86.73 Personal history of transient ischemic attack (TIA), and cerebral infarction without residual deficits; I89.0 Lymphedema, not elsewhere classified; L84 Corns and callosities; E11.621 Type 2 diabetes mellitus with foot ulcer; Z79.899 Other long term (current) drug therapy; Z91.19 Patient's noncompliance with other medical treatment and regimen; F17.210 Nicotine dependence, cigarettes, uncomplicated; R65.20 Severe sepsis without septic shock; Z99.2 Dependence on renal dialysis; G47.33 Obstructive sleep apnea (adult) (pediatric); R51.9 Headache, unspecified; Z20.822 Contact with and (suspected) exposure to COVID-19
CPT/HCPCS: 36415; 36558; 71045; 71250; 74176; 74470; 76770; 76937; 77001; 80048; 80053; 80202; 81001; 81050; 82232; 82570; 82575; 82948; 83516; 83540; 83605; 83735; 83880; 84100; 84156; 84165; 84166; 84466; 85014; 85018; 85025; 85610; 85730; 86021; 86160; 86225; 86235; 86255; 86256; 86335; 86376; 86431; 87040; 87086; 87390; 93970; 94799; 96361; 96372; 99251; 99284; C1751; G0433; G0435; J0692; J0696; J1644; J1756; J1817; J1940; J2001; J2020; J2250; J2405; J3010; J3370; J7030; J7040; J7050

== ENCOUNTER → 2022-05-26 | Outpatient (CLI) | payer BC ==
[~2022-05-26] MED LIST changes: +CEFTRIAXON1 GM/50 M1 IV; +CHOLESTYRAMI239.4 GM PO; +LIDOCAINE HCL 1% LOCAL INJ 20 ML VIAL ONE; +LINEZOLID600 MG PO; +LISINOPRIL-HCT1 EAC2
== END ==
LOC: DX 10:34
PROVIDERS: ATTEND Internal Medicine Infectious Disease
DX: L03.115 Cellulitis of right lower limb (principal)
CPT/HCPCS: 36589; J2001

== ENCOUNTER → 2022-07-22 | Outpatient (CLI) | payer BC ==
[~2022-07-22] MED LIST changes: -LIDOCAINE HCL 1% LOCAL INJ 20 ML VIAL ONE; +LIDOCAINE VISC 2% SOLN 15 ML UDC ONE; +MINERAL OIL/PETROLAT/GLYCERI 6OZ BTL ONE; +TRIAMCINOLONE ACET 0.1% CREAM 15 GM TUBE ONE
== END ==
LOC: WCC 10:09
PROVIDERS: ATTEND Family Medicine Adult Medicine
DX: E11.621 Type 2 diabetes mellitus with foot ulcer (principal); E11.40 Type 2 diabetes mellitus with diabetic neuropathy, unspecified; E11.65 Type 2 diabetes mellitus with hyperglycemia; L03.116 Cellulitis of left lower limb; L97.811 Non-pressure chronic ulcer of other part of right lower leg limited to breakdown of skin; L97.821 Non-pressure chronic ulcer of other part of left lower leg limited to breakdown of skin; I89.0 Lymphedema, not elsewhere classified; R60.0 Localized edema; I83.10 Varicose veins of unspecified lower extremity with inflammation; G45.9 Transient cerebral ischemic attack, unspecified; N17.9 Acute kidney failure, unspecified; I10 Essential (primary) hypertension; E78.5 Hyperlipidemia, unspecified; G47.39 Other sleep apnea; E66.01 Morbid (severe) obesity due to excess calories

== ENCOUNTER → 2022-07-24 | Outpatient (CLI) | payer BC ==
[~2022-07-24] MED LIST changes: -LIDOCAINE VISC 2% SOLN 15 ML UDC ONE; -MINERAL OIL/PETROLAT/GLYCERI 6OZ BTL ONE; -TRIAMCINOLONE ACET 0.1% CREAM 15 GM TUBE ONE
== END ==
LOC: WCC 13:13
PROVIDERS: ATTEND Family Medicine Adult Medicine
DX: E11.621 Type 2 diabetes mellitus with foot ulcer (principal); E11.40 Type 2 diabetes mellitus with diabetic neuropathy, unspecified; E11.65 Type 2 diabetes mellitus with hyperglycemia; L97.821 Non-pressure chronic ulcer of other part of left lower leg limited to breakdown of skin; L97.811 Non-pressure chronic ulcer of other part of right lower leg limited to breakdown of skin; L03.116 Cellulitis of left lower limb; I89.0 Lymphedema, not elsewhere classified; R60.0 Localized edema; I83.10 Varicose veins of unspecified lower extremity with inflammation; N17.9 Acute kidney failure, unspecified; G45.9 Transient cerebral ischemic attack, unspecified; I10 Essential (primary) hypertension; E78.5 Hyperlipidemia, unspecified; G47.39 Other sleep apnea; E66.01 Morbid (severe) obesity due to excess calories

== ENCOUNTER → 2022-07-31 | Outpatient (CLI) | payer BC | LOC: WCC 13:25 | PROVIDERS: ATTEND Family Medicine Adult Medicine | DX: E11.40 Type 2 diabetes mellitus with diabetic neuropathy, unspecified (principal); E11.65 Type 2 diabetes mellitus with hyperglycemia; E11.621 Type 2 diabetes mellitus with foot ulcer; L03.116 Cellulitis of left lower limb; L97.821 Non-pressure chronic ulcer of other part of left lower leg limited to breakdown of skin; L97.811 Non-pressure chronic ulcer of other part of right lower leg limited to breakdown of skin; I89.0 Lymphedema, not elsewhere classified; R60.0 Localized edema; I83.10 Varicose veins of unspecified lower extremity with inflammation; G45.9 Transient cerebral ischemic attack, unspecified; N17.9 Acute kidney failure, unspecified; I10 Essential (primary) hypertension; E78.5 Hyperlipidemia, unspecified; G47.39 Other sleep apnea; E66.01 Morbid (severe) obesity due to excess calories ==

== ENCOUNTER → 2022-08-14 | Outpatient (CLI) | payer BC | LOC: WCC 15:05 | PROVIDERS: ATTEND Family Medicine Adult Medicine | DX: E11.621 Type 2 diabetes mellitus with foot ulcer (principal); E11.65 Type 2 diabetes mellitus with hyperglycemia; E11.40 Type 2 diabetes mellitus with diabetic neuropathy, unspecified; L97.821 Non-pressure chronic ulcer of other part of left lower leg limited to breakdown of skin; L97.221 Non-pressure chronic ulcer of left calf limited to breakdown of skin; L03.116 Cellulitis of left lower limb; I83.11 Varicose veins of right lower extremity with inflammation; I83.10 Varicose veins of unspecified lower extremity with inflammation; I89.0 Lymphedema, not elsewhere classified; R60.0 Localized edema; N17.9 Acute kidney failure, unspecified; I10 Essential (primary) hypertension; E78.5 Hyperlipidemia, unspecified; G45.9 Transient cerebral ischemic attack, unspecified; G47.39 Other sleep apnea; E66.01 Morbid (severe) obesity due to excess calories ==

== ENCOUNTER → 2022-08-28 | Outpatient (CLI) | payer BC | LOC: WCC 13:55 | PROVIDERS: ATTEND Family Medicine Adult Medicine | DX: E11.621 Type 2 diabetes mellitus with foot ulcer (principal); E11.40 Type 2 diabetes mellitus with diabetic neuropathy, unspecified; E11.65 Type 2 diabetes mellitus with hyperglycemia; L03.116 Cellulitis of left lower limb; L97.221 Non-pressure chronic ulcer of left calf limited to breakdown of skin; I83.11 Varicose veins of right lower extremity with inflammation; I83.10 Varicose veins of unspecified lower extremity with inflammation; I89.0 Lymphedema, not elsewhere classified; R60.0 Localized edema; N17.9 Acute kidney failure, unspecified; I10 Essential (primary) hypertension; G45.9 Transient cerebral ischemic attack, unspecified; E78.5 Hyperlipidemia, unspecified; G47.39 Other sleep apnea; E66.01 Morbid (severe) obesity due to excess calories ==

== ENCOUNTER → 2022-09-09 | Outpatient (CLI) | payer BC ==
[~2022-09-09] MED LIST changes: +MINERAL OIL/PETROLAT/GLYCERI 6OZ BTL ONE
== END ==
LOC: WCC 13:47
PROVIDERS: ATTEND Family Medicine Adult Medicine
DX: E11.40 Type 2 diabetes mellitus with diabetic neuropathy, unspecified (principal); E11.621 Type 2 diabetes mellitus with foot ulcer; E11.65 Type 2 diabetes mellitus with hyperglycemia; L03.116 Cellulitis of left lower limb; L97.221 Non-pressure chronic ulcer of left calf limited to breakdown of skin; I89.0 Lymphedema, not elsewhere classified; I83.11 Varicose veins of right lower extremity with inflammation; I83.12 Varicose veins of left lower extremity with inflammation; I83.10 Varicose veins of unspecified lower extremity with inflammation; R60.0 Localized edema; N17.9 Acute kidney failure, unspecified; I10 Essential (primary) hypertension; G45.9 Transient cerebral ischemic attack, unspecified; E78.5 Hyperlipidemia, unspecified; G47.39 Other sleep apnea; E66.01 Morbid (severe) obesity due to excess calories; F17.218 Nicotine dependence, cigarettes, with other nicotine-induced disorders

== ENCOUNTER 2022-09-30 12:28 | Emergency (ER) | payer BC ==
[~2022-09-30] VITALS: Ht 195.6 cm; Wt 215.5 kg
[~2022-09-30 12:28] MED LIST changes: -MINERAL OIL/PETROLAT/GLYCERI 6OZ BTL ONE
[2022-09-30] MEDS ORDERED: HYDROCODONE/APAP 5MG-325MG TAB PO ONE (13:00)
[2022-09-30] MEDS ORDERED: CYCLOBENZAPRINE HCL 10 MG TAB PO ONE (13:00)
[2022-09-30] MEDS ORDERED: ACETAMINOPHEN-1 EAC4 PO (14:41)
[2022-09-30] MEDS ORDERED: METHOCARBAMOL750 MG PO (14:57)
== END 2022-09-30 15:15 | disposition home or self-care (01) ==
LOC: ER 12:35
DX: M51.26 Other intervertebral disc displacement, lumbar region (principal); G89.29 Other chronic pain; I10 Essential (primary) hypertension; E11.9 Type 2 diabetes mellitus without complications; Z86.73 Personal history of transient ischemic attack (TIA), and cerebral infarction without residual deficits
CPT/HCPCS: 72131; 99283

== ENCOUNTER 2022-10-02 22:52 | Emergency (ER) | payer BC ==
[~2022-10-02] VITALS: Ht 195.6 cm; Wt 215.5 kg
[~2022-10-02 22:52] MED LIST changes: +ACETAMINOPHEN-1 EAC4 PO; +METHOCARBAMOL750 MG PO
[2022-10-02] MEDS ORDERED: ALBUTEROL/IPRATROPIUM 3 ML NEB NEB ONE (23:15)
[2022-10-02 23:22] LABS: BASOPHILS # (AUTO) 0.1 (0.0-0.1); BASOPHILS % 0.6 % (0.0-1.0); EOSINOPHILS # (AUTO) 0.4 (0.0-0.4); EOSINOPHILS % 3.8 % (0.0-6.0); HEMATOCRIT 31.6 % (38.2-49.6); HEMOGLOBIN 9.1 g/dL (14.0-18.0); LYMPHOCYTES # (AUTO) 1.8 (1.0-3.2); LYMPHOCYTES % 18.4 % (18.0-39.1); MEAN CORPUSCULAR HEMOGLOBIN 27.4 pg (28-32); MEAN CORPUSCULAR HGB CONC 28.8 g/dL (31-35); MEAN CORPUSCULAR VOLUME 95.2 fL (81-99); MONOCYTES # (AUTO) 0.7 (0.2-0.8); MONOCYTES % 7.1 % (4.4-11.3); NEUTROPHILS # (AUTO) 6.8 (2.1-6.9); NEUTROPHILS % 68.3 % (38.7-80.0); PLATELET COUNT 302 x10e3/uL (140-360); RED BLOOD COUNT 3.32 x10e6/uL (4.3-5.7); RED CELL DISTRIBUTION WIDTH 15.6 % (11.7-14.4)
[2022-10-02] MEDS ORDERED: ALBUTEROL/IPRATROPIUM 3 ML NEB ONE (23:22)
[2022-10-02 23:30] LABS: INR 1.16
[2022-10-02 23:31] LABS: PARTIAL THROMBOPLASTIN TIME 38.6 seconds (23.8-35.5)
[2022-10-02 23:39] LABS: ALBUMIN 2.7 g/dL (3.5-5.0); ALBUMIN/GLOBULIN RATIO 0.6 (0.8-2.0); ANION GAP 20.4 mmol/L (8-16); CALCIUM 7.9 mg/dL (8.4-10.2); CREATININE, SERUM 7.2 mg/dL (0.72-1.25)
[2022-10-02 23:41] LABS: POTASSIUM 6.4 mmol/L (3.5-5.1)
[2022-10-02 23:48] LABS: ABG PCO2 42 mmHg (35-45); ABG PH 7.21 (7.35-7.45); ABG PO2 51 mmHg (80-105)
[2022-10-02 23:49] LABS: ABG HCO3 17 mmol/L (22-26); ABG TCO2 18
[2022-10-02] MEDS ORDERED: SOD POLYSTYRENE SULFONATE SUSP 15 GM/60 ML BTL PO STA (23:51)
[2022-10-02] MEDS ORDERED: SODIUM BICARBONATE 8.4% INJ 50 ML SYR IV STA (23:51)
[2022-10-02] MEDS ORDERED: CALCIUM GLUCONATE 10% INJ 0.465 MEQ/ML VIAL IV STA (23:51)
[2022-10-03] MEDS ORDERED: INSULIN REGULAR, HUMAN 100 UNIT/1 ML IV ONE
[2022-10-03] MEDS ORDERED: DEXTROSE 50% SYRINGE 50 ML IV ONE
[2022-10-03] MEDS ORDERED: FUROSEMIDE INJ 10 MG/ML 10 ML VIAL IV ONE
[2022-10-03 00:08] LABS: CREATINE KINASE MB 4.5 ng/mL (0-5.0)
[2022-10-03 01:06] LABS: CLARITY,URINE CLOUDY (CLEAR); COLOR,URINE YELLOW (YELLOW); KETONES,URINE NEGATIVE (NEGATIVE); LEUKOCYTE ESTERASE ,URINE SMALL (NEGATIVE); NITRITE,URINE POSITIVE (NEGATIVE); PROTEIN,URINE DIPSTICK >=300 (NEGATIVE); URINE UROBILINOGEN 0.2 mg/dL (0.2 - 1)
[2022-10-03 01:08] LABS: BACTERIA,URINE MANY /HPF; EPITHELIAL CELLS,URINE FEW /LPF; WBC,URINE (MAN) >50 /HPF (0-5)
[2022-10-03] MEDS ORDERED: FUROSEMIDE INJ 10 MG/ML 4 ML VIAL ONE (01:13)
[2022-10-03] MEDS ORDERED: CALCIUM GLUC 1 G/50 ML NACL 50 ML IV ONE (01:22)
== END 2022-10-03 02:39 | disposition other institution (70) ==
LOC: ER 22:59
DX: R09.02 Hypoxemia (principal); N17.9 Acute kidney failure, unspecified; N39.0 Urinary tract infection, site not specified; E66.2 Morbid (severe) obesity with alveolar hypoventilation; E87.5 Hyperkalemia; Z20.822 Contact with and (suspected) exposure to COVID-19
CPT/HCPCS: 36415; 36600; 51700; 71045; 80053; 81001; 82550; 82553; 82805; 83605; 83880; 84484; 85025; 85610; 85730; 87040; 87086; 87186; 87400; 93005; 94640; 94799; 99284; J0456; J0696; J1817; J1940; J7050; J7799; U0002; J0610

== ENCOUNTER → 2022-11-13 | Outpatient (CLI) | payer BC ==
[~2022-11-13] MED LIST changes: +LIDOCAINE VISC 2% SOLN 15 ML UDC ONE; +MINERAL OIL/PETROLAT/GLYCERI 6OZ BTL ONE; +TRIAMCINOLONE ACET 0.1% CREAM 15 GM TUBE ONE
== END ==
LOC: WCC 12:41
PROVIDERS: ATTEND Family Medicine Adult Medicine
DX: E11.621 Type 2 diabetes mellitus with foot ulcer (principal); E11.40 Type 2 diabetes mellitus with diabetic neuropathy, unspecified; E11.65 Type 2 diabetes mellitus with hyperglycemia; L97.411 Non-pressure chronic ulcer of right heel and midfoot limited to breakdown of skin; L97.511 Non-pressure chronic ulcer of other part of right foot limited to breakdown of skin; L97.521 Non-pressure chronic ulcer of other part of left foot limited to breakdown of skin; L97.811 Non-pressure chronic ulcer of other part of right lower leg limited to breakdown of skin; L97.821 Non-pressure chronic ulcer of other part of left lower leg limited to breakdown of skin; L03.116 Cellulitis of left lower limb; I83.10 Varicose veins of unspecified lower extremity with inflammation; I89.0 Lymphedema, not elsewhere classified; R60.0 Localized edema; G45.9 Transient cerebral ischemic attack, unspecified; N17.9 Acute kidney failure, unspecified; I10 Essential (primary) hypertension; E78.5 Hyperlipidemia, unspecified; G47.39 Other sleep apnea; E66.01 Morbid (severe) obesity due to excess calories; F17.218 Nicotine dependence, cigarettes, with other nicotine-induced disorders

== ENCOUNTER → 2022-11-20 | Outpatient (CLI) | payer BC ==
[~2022-11-20] MED LIST changes: -LIDOCAINE VISC 2% SOLN 15 ML UDC ONE; -MINERAL OIL/PETROLAT/GLYCERI 6OZ BTL ONE; -TRIAMCINOLONE ACET 0.1% CREAM 15 GM TUBE ONE
== END ==
LOC: WCC 13:02
PROVIDERS: ATTEND Family Medicine Adult Medicine
DX: E11.621 Type 2 diabetes mellitus with foot ulcer (principal); E11.40 Type 2 diabetes mellitus with diabetic neuropathy, unspecified; E11.65 Type 2 diabetes mellitus with hyperglycemia; L03.116 Cellulitis of left lower limb; L97.811 Non-pressure chronic ulcer of other part of right lower leg limited to breakdown of skin; L97.511 Non-pressure chronic ulcer of other part of right foot limited to breakdown of skin; L97.411 Non-pressure chronic ulcer of right heel and midfoot limited to breakdown of skin; L97.821 Non-pressure chronic ulcer of other part of left lower leg limited to breakdown of skin; L97.521 Non-pressure chronic ulcer of other part of left foot limited to breakdown of skin; I83.10 Varicose veins of unspecified lower extremity with inflammation; I89.0 Lymphedema, not elsewhere classified; R60.0 Localized edema; N17.9 Acute kidney failure, unspecified; I10 Essential (primary) hypertension; G45.9 Transient cerebral ischemic attack, unspecified; E78.5 Hyperlipidemia, unspecified; G47.39 Other sleep apnea; E66.01 Morbid (severe) obesity due to excess calories; F17.218 Nicotine dependence, cigarettes, with other nicotine-induced disorders

== ENCOUNTER → 2022-12-25 | Outpatient (CLI) | payer BC ==
[~2022-12-25] MED LIST changes: +MINERAL OIL/PETROLAT/GLYCERI 6OZ BTL ONE
== END ==
LOC: WCC 13:55
PROVIDERS: ATTEND Family Medicine Adult Medicine
DX: E11.621 Type 2 diabetes mellitus with foot ulcer (principal); E11.40 Type 2 diabetes mellitus with diabetic neuropathy, unspecified; E11.65 Type 2 diabetes mellitus with hyperglycemia; L97.811 Non-pressure chronic ulcer of other part of right lower leg limited to breakdown of skin; L97.511 Non-pressure chronic ulcer of other part of right foot limited to breakdown of skin; L97.411 Non-pressure chronic ulcer of right heel and midfoot limited to breakdown of skin; L97.821 Non-pressure chronic ulcer of other part of left lower leg limited to breakdown of skin; L97.521 Non-pressure chronic ulcer of other part of left foot limited to breakdown of skin; L03.116 Cellulitis of left lower limb; I83.10 Varicose veins of unspecified lower extremity with inflammation; I89.0 Lymphedema, not elsewhere classified; R60.0 Localized edema; G45.9 Transient cerebral ischemic attack, unspecified; N17.9 Acute kidney failure, unspecified; I10 Essential (primary) hypertension; E78.5 Hyperlipidemia, unspecified; G47.39 Other sleep apnea; E66.01 Morbid (severe) obesity due to excess calories; F17.218 Nicotine dependence, cigarettes, with other nicotine-induced disorders

== ENCOUNTER → 2023-04-09 | Outpatient (CLI) | payer BC ==
[~2023-04-09] MED LIST changes: -MINERAL OIL/PETROLAT/GLYCERI 6OZ BTL ONE
== END ==
LOC: WCC 14:55
PROVIDERS: ATTEND Family Medicine Adult Medicine
DX: E11.621 Type 2 diabetes mellitus with foot ulcer (principal); L89.616 Pressure-induced deep tissue damage of right heel; L97.512 Non-pressure chronic ulcer of other part of right foot with fat layer exposed; L98.8 Other specified disorders of the skin and subcutaneous tissue; S90.424A Blister (nonthermal), right lesser toe(s), initial encounter; R60.0 Localized edema

== ENCOUNTER → 2023-04-16 | Outpatient (CLI) | payer BC | LOC: WCC 12:44 | PROVIDERS: ATTEND Family Medicine Adult Medicine | DX: L98.8 Other specified disorders of the skin and subcutaneous tissue (principal); R60.0 Localized edema ==

== ENCOUNTER → 2023-04-28 | Outpatient (CLI) | payer BC ==
[~2023-04-28] MED LIST changes: +AMLODIPINE BESY10 MG PO; +BUMETANIDE1 MG PO; +HYTRIN1 M1 PO; +IRON PO; +LOSARTAN POTASS25 MG PO; +METOLAZONE5 MG PO; +METOPROLOL TART50 MG PO; +MUPIROCIN22 GM TOP; +RENAGEL800 MG PO
== END ==
LOC: WCC 15:01
PROVIDERS: ATTEND Family Medicine Adult Medicine
DX: L98.8 Other specified disorders of the skin and subcutaneous tissue (principal); R60.0 Localized edema

== ENCOUNTER 2023-05-04 19:03 | Inpatient (IN) | payer BC ==
[~2023-05-04] VITALS: Ht 195.6 cm; Wt 215.5 kg
[~2023-05-04 19:03] MED LIST changes: -AMLODIPINE BESY10 MG PO; -BUMETANIDE1 MG PO; -HYTRIN1 M1 PO; -IRON PO; -LOSARTAN POTASS25 MG PO; -METOLAZONE5 MG PO; -METOPROLOL TART50 MG PO; -MUPIROCIN22 GM TOP; -RENAGEL800 MG PO
[2023-05-04] MEDS ORDERED: Vancomycin IV 2 GM in SODIUM CHLORIDE 0.9% 500ML 500 ML IV ONE (21:00)
[2023-05-04 21:22] LABS: BASOPHILS # (AUTO) 0.1 (0.0-0.1); BASOPHILS % 0.6 % (0.0-1.0); EOSINOPHILS # (AUTO) 1.2 (0.0-0.4); EOSINOPHILS % 8.4 % (0.0-6.0); HEMOGLOBIN 8.8 g/dL (14.0-18.0); LYMPHOCYTES # (AUTO) 2.2 (1.0-3.2); LYMPHOCYTES % 15.7 % (18.0-39.1); MEAN CORPUSCULAR HEMOGLOBIN 24.2 pg (28-32); MEAN CORPUSCULAR HGB CONC 31.4 g/dL (31-35); MEAN CORPUSCULAR VOLUME 77.1 fL (81-99); MONOCYTES # (AUTO) 0.9 (0.2-0.8); MONOCYTES % 6.2 % (4.4-11.3); NEUTROPHILS # (AUTO) 9.4 (2.1-6.9); NEUTROPHILS % 68.7 % (38.7-80.0); PLATELET COUNT 423 x10e3/uL (140-360); RED BLOOD COUNT 3.63 x10e6/uL (4.3-5.7); RED CELL DISTRIBUTION WIDTH 14.9 % (11.7-14.4)
[2023-05-04 21:45] LABS: ALANINE AMINOTRANSFERASE < 6 IU/L (0-55); ALBUMIN 2.6 g/dL (3.5-5.0); ALBUMIN/GLOBULIN RATIO 0.5 (0.8-2.0); ALKALINE PHOSPHATASE 105 IU/L (40-150); ANION GAP 18.9 mmol/L (8-16); BLOOD UREA NITROGEN 91 mg/dL (7-26); BUN/CREATININE RATIO 18 (6-25); CALCIUM 8.2 mg/dL (8.4-10.2); CARBON DIOXIDE 27 mmol/L (22-29); CHLORIDE 95 mmol/L (98-107); CREATININE, SERUM 4.92 mg/dL (0.72-1.25); GLUCOSE 180 mg/dL (74-118); POTASSIUM 3.9 mmol/L (3.5-5.1); SODIUM 137 mmol/L (136-145)
[2023-05-04] MEDS ORDERED: ONDANSETRON HCL INJ 2MG/ML 2ML 2 MG/ML VIAL IV PRN (22:00)
[2023-05-04] MEDS ORDERED: SODIUM CHLORIDE FLUSH 10 ML SYR INJ PRN (22:00)
[2023-05-05] VITALS (10 sets, daily range): BP systolic 113–135; BP diastolic 61–68; PULSE 65–82; RESP 16–20; TEMP 97.3–98.5; O2SAT 92–100
[2023-05-05] MEDS ORDERED: LOSARTAN POTASS25 MG PO (00:40)
[2023-05-05] MEDS ORDERED: AMLODIPINE BESY10 MG PO (00:40)
[2023-05-05] MEDS ORDERED: BUMETANIDE1 MG PO (00:40)
[2023-05-05] MEDS ORDERED: DIPHENHYDRAMINE HCL 25 MG CAP PO PRN (01:15)
[2023-05-05] MEDS ORDERED: HYDRALAZINE HCL 20 MG/ML VIAL IV PRN (01:15)
[2023-05-05] MEDS ORDERED: ACETAMINOPHEN 325 MG TAB PO PRN (01:15)
[2023-05-05] MEDS ORDERED: HYDROCODONE/APAP 5MG-325MG TAB PO PRN (01:15)
[2023-05-05] MEDS ORDERED: SIMETHICONE 80 MG CHEW PO PRN (01:15)
[2023-05-05] MEDS ORDERED: DOCUSATE SODIUM 100 MG CAP PO PRN (01:15)
[2023-05-05] MEDS ORDERED: DEXTROSE 50% SYRINGE 50 ML IV PRN ×2 (01:15→18:45)
[2023-05-05] MEDS ORDERED: MELATONIN 5 MG TABLET PO PRN (01:15)
[2023-05-05] MEDS ORDERED: ALBUTEROL/IPRATROPIUM 3 ML NEB NEB PRN (01:15)
[2023-05-05] MEDS ORDERED: LIDOCAINE 4% PATCH TP PRN (01:15)
[2023-05-05] MEDS ORDERED: POTASSIUM CHLORIDE 20 MEQ TAB CR PO PRN (01:15)
[2023-05-05] MEDS ORDERED: BENZONATATE 100 MG CAP PO PRN (01:15)
[2023-05-05] MEDS ORDERED: HYTRIN1 M1 PO (02:08)
[2023-05-05] MEDS ORDERED: SODIUM CHLORIDE 0.9% 250ML 250 ML ONE (05:02)
[2023-05-05 05:57] LABS: BASOPHILS # (AUTO) 0.1 (0.0-0.1); BASOPHILS % 0.6 % (0.0-1.0); EOSINOPHILS % 7.9 % (0.0-6.0); HEMATOCRIT 27.6 % (38.2-49.6); HEMOGLOBIN 8.6 g/dL (14.0-18.0); LYMPHOCYTES # (AUTO) 1.5 (1.0-3.2); LYMPHOCYTES % 11.6 % (18.0-39.1); MEAN CORPUSCULAR HEMOGLOBIN 24.3 pg (28-32); MEAN CORPUSCULAR HGB CONC 31.2 g/dL (31-35); MONOCYTES # (AUTO) 0.7 (0.2-0.8); MONOCYTES % 5.9 % (4.4-11.3); NEUTROPHILS # (AUTO) 9.3 (2.1-6.9); NEUTROPHILS % 73.6 % (38.7-80.0); PLATELET COUNT 368 x10e3/uL (140-360); RED BLOOD COUNT 3.54 x10e6/uL (4.3-5.7); RED CELL DISTRIBUTION WIDTH 14.9 % (11.7-14.4)
[2023-05-05 06:34] LABS: ALBUMIN 2.3 g/dL (3.5-5.0); ALBUMIN/GLOBULIN RATIO 0.5 (0.8-2.0); ALKALINE PHOSPHATASE 93 IU/L (40-150); ANION GAP 17.6 mmol/L (8-16); BLOOD UREA NITROGEN 88 mg/dL (7-26); BUN/CREATININE RATIO 18 (6-25); CARBON DIOXIDE 27 mmol/L (22-29); CHLORIDE 97 mmol/L (98-107); CREATININE, SERUM 4.95 mg/dL (0.72-1.25); GLUCOSE 194 mg/dL (74-118); POTASSIUM 3.6 mmol/L (3.5-5.1); SODIUM 138 mmol/L (136-145)
[2023-05-05 06:44] LABS: ALANINE AMINOTRANSFERASE < 6 IU/L (0-55)
[2023-05-05 06:55] LABS: CHOL/HDL RATIO 5.1 (3.9-4.7)
[2023-05-05 07:15] LABS: THYROID STIMULATING HORMONE 1.183 uIU/mL (0.350-4.940)
[2023-05-05] MEDS: PANTOPRAZOLE SOD 40 MG TABEC PO SCH (08:16)
[2023-05-05] MEDS ORDERED: RENAGEL800 MG PO (08:57)
[2023-05-05] MEDS ORDERED: IRON PO (08:57)
[2023-05-05] MEDS ORDERED: METOPROLOL TART50 MG PO (08:57)
[2023-05-05] MEDS ORDERED: METOLAZONE5 MG PO (08:57)
[2023-05-05] MEDS ORDERED: MUPIROCIN22 GM TOP (08:57)
[2023-05-05] MEDS ORDERED: TRESIBA100 UNIT/1 SC (08:58)
[2023-05-05] MEDS ORDERED: Vancomycin IV 1.25 GM in SODIUM CHLORIDE 0.9% 250ML 250 ML IV SCH ×2 (11:00→11:30)
[2023-05-05] MEDS ORDERED: EPOETIN ALFA-EPBX 10,000 UNIT/ML VIAL SC ONE (11:30)
[2023-05-05 11:53] LABS: FERRITIN 179.62 ng/mL (21.81-274.66)
[2023-05-05] MEDS: SEVELAMER CARBONATE 800 MG TAB PO SCH ×2 (14:59→20:59)
[2023-05-05] MEDS: LINEZOLID 600 MG TAB PO SCH (17:02)
[2023-05-05] MEDS: SODIUM BICARBONATE 650 MG TAB PO SCH (17:02)
[2023-05-05] MEDS: ENOXAPARIN 30 MG/0.3 ML SYR SC SCH (17:02)
[2023-05-05] MEDS: SIMVASTATIN 40 MG TAB PO SCH (20:59)
[2023-05-05] MEDS: INSULIN GLARGINE 100 UNITS/ML VIAL SQ SCH (21:07)
[2023-05-05] MEDS: INSULIN LISPRO 100 UNIT/1 ML 3ML VIAL SQ SCH (21:07)
[2023-05-05] MEDS ORDERED: POVIDONE IODINE 10% 120 ML BTL EXT PRN (21:15)
[2023-05-06] VITALS (8 sets, daily range): BP systolic 121–126; BP diastolic 60–69; PULSE 70–86; RESP 18–21; TEMP 97.8–98.5; O2SAT 93–100
[2023-05-06 05:46] LABS: BASOPHILS # (AUTO) 0.1 (0.0-0.1); BASOPHILS % 0.7 % (0.0-1.0); EOSINOPHILS # (AUTO) 1.4 (0.0-0.4); HEMATOCRIT 28.3 % (38.2-49.6); HEMOGLOBIN 8.6 g/dL (14.0-18.0); LYMPHOCYTES # (AUTO) 1.7 (1.0-3.2); LYMPHOCYTES % 13.7 % (18.0-39.1); MEAN CORPUSCULAR HEMOGLOBIN 24.1 pg (28-32); MEAN CORPUSCULAR HGB CONC 30.4 g/dL (31-35); MEAN CORPUSCULAR VOLUME 79.3 fL (81-99); MONOCYTES # (AUTO) 0.9 (0.2-0.8); NEUTROPHILS # (AUTO) 8.3 (2.1-6.9); PLATELET COUNT 375 x10e3/uL (140-360); RED BLOOD COUNT 3.57 x10e6/uL (4.3-5.7); RED CELL DISTRIBUTION WIDTH 14.7 % (11.7-14.4)
[2023-05-06 06:21] LABS: ANION GAP 15.4 mmol/L (8-16); CREATININE, SERUM 4.56 mg/dL (0.72-1.25); POTASSIUM 3.4 mmol/L (3.5-5.1)
[2023-05-06] MEDS: PANTOPRAZOLE SOD 40 MG TABEC PO SCH (08:47)
[2023-05-06] MEDS: INSULIN LISPRO 100 UNIT/1 ML 3ML VIAL SQ SCH ×4 (08:48→22:00)
[2023-05-06] MEDS: SODIUM BICARBONATE 650 MG TAB PO SCH ×2 (08:57→17:55)
[2023-05-06] MEDS: SEVELAMER CARBONATE 800 MG TAB PO SCH ×3 (08:57→21:54)
[2023-05-06] MEDS: TERAZOSIN HCL 1 MG CAP PO SCH (08:57)
[2023-05-06] MEDS: AMLODIPINE BESYLATE 10 MG TAB PO SCH (08:58)
[2023-05-06] MEDS: ASPIRIN 81 MG CHEW TAB PO SCH (08:58)
[2023-05-06] MEDS: LINEZOLID 600 MG TAB PO SCH ×2 (08:58→17:55)
[2023-05-06] MEDS: METOPROLOL TARTRATE 50 MG TAB PO SCH (08:59)
[2023-05-06] MEDS ORDERED: METOLAZONE 5 MG TAB PO SCH (09:00)
[2023-05-06] MEDS ORDERED: POTASSIUM CHLORIDE 20 MEQ TAB CR PO ONE (11:00)
[2023-05-06] MEDS ORDERED: ONDANSETRON HCL 4 MG ORAL DISINTEGRATING TAB PO PRN (12:15)
[2023-05-06] MEDS: ENOXAPARIN 30 MG/0.3 ML SYR SC SCH (17:15)
[2023-05-06] MEDS: SIMVASTATIN 40 MG TAB PO SCH (21:54)
[2023-05-06] MEDS: MUPIROCIN 2% OINT 22 GM TUBE TOP SCH (21:57)
[2023-05-06] MEDS: INSULIN GLARGINE 100 UNITS/ML VIAL SQ SCH (22:00)
[2023-05-07] VITALS (10 sets, daily range): BP systolic 126–136; BP diastolic 60–74; PULSE 65–80; RESP 17–20; TEMP 97.7–99.5; O2SAT 93–100
[2023-05-07 05:07] LABS: BASOPHILS # (AUTO) 0.1 (0.0-0.1); BASOPHILS % 0.4 % (0.0-1.0); EOSINOPHILS # (AUTO) 1.3 (0.0-0.4); EOSINOPHILS % 10.6 % (0.0-6.0); HEMATOCRIT 27.8 % (38.2-49.6); HEMOGLOBIN 8.6 g/dL (14.0-18.0); LYMPHOCYTES # (AUTO) 1.9 (1.0-3.2); LYMPHOCYTES % 15.8 % (18.0-39.1); MEAN CORPUSCULAR HEMOGLOBIN 24.2 pg (28-32); MEAN CORPUSCULAR HGB CONC 30.9 g/dL (31-35); MEAN CORPUSCULAR VOLUME 78.3 fL (81-99); MONOCYTES # (AUTO) 0.9 (0.2-0.8); MONOCYTES % 7.6 % (4.4-11.3); NEUTROPHILS % 65.2 % (38.7-80.0); PLATELET COUNT 318 x10e3/uL (140-360); RED BLOOD COUNT 3.55 x10e6/uL (4.3-5.7)
[2023-05-07 05:24] LABS: ANION GAP 16.7 mmol/L (8-16); CALCIUM 7.8 mg/dL (8.4-10.2); CREATININE, SERUM 4.53 mg/dL (0.72-1.25); POTASSIUM 3.7 mmol/L (3.5-5.1)
[2023-05-07] MEDS: SEVELAMER CARBONATE 800 MG TAB PO SCH ×3 (09:27→21:02)
[2023-05-07] MEDS: ASPIRIN 81 MG CHEW TAB PO SCH (09:27)
[2023-05-07] MEDS: AMLODIPINE BESYLATE 10 MG TAB PO SCH (09:27)
[2023-05-07] MEDS: METOPROLOL TARTRATE 50 MG TAB PO SCH (09:27)
[2023-05-07] MEDS: LINEZOLID 600 MG TAB PO SCH ×2 (09:27→16:35)
[2023-05-07] MEDS: TERAZOSIN HCL 1 MG CAP PO SCH (09:28)
[2023-05-07] MEDS: INSULIN LISPRO 100 UNIT/1 ML 3ML VIAL SQ SCH ×4 (09:31→21:00)
[2023-05-07] MEDS: SODIUM BICARBONATE 650 MG TAB PO SCH ×2 (09:33→16:35)
[2023-05-07] MEDS: MUPIROCIN 2% OINT 22 GM TUBE TOP SCH ×2 (09:33→21:02)
[2023-05-07] MEDS: PANTOPRAZOLE SOD 40 MG TABEC PO SCH (09:36)
[2023-05-07] MEDS: ENOXAPARIN 30 MG/0.3 ML SYR SC SCH (16:35)
[2023-05-07 18:31] LABS: CREATININE,URINE RANDOM 83.7 mg/dL (63-166)
[2023-05-07] MEDS: INSULIN GLARGINE 100 UNITS/ML VIAL SQ SCH (21:00)
[2023-05-07] MEDS: SIMVASTATIN 40 MG TAB PO SCH (21:03)
[2023-05-08] VITALS (10 sets, daily range): BP systolic 123–156; BP diastolic 60–84; PULSE 73–97; RESP 19–20; TEMP 97.6–98.6; O2SAT 95–100
[2023-05-08 05:38] LABS: BASOPHILS # (AUTO) 0.1 (0.0-0.1); BASOPHILS % 0.8 % (0.0-1.0); EOSINOPHILS # (AUTO) 1.1 (0.0-0.4); EOSINOPHILS % 10.4 % (0.0-6.0); HEMATOCRIT 28.6 % (38.2-49.6); HEMOGLOBIN 8.7 g/dL (14.0-18.0); LYMPHOCYTES # (AUTO) 1.7 (1.0-3.2); LYMPHOCYTES % 15.6 % (18.0-39.1); MEAN CORPUSCULAR HEMOGLOBIN 24.4 pg (28-32); MEAN CORPUSCULAR HGB CONC 30.4 g/dL (31-35); MEAN CORPUSCULAR VOLUME 80.1 fL (81-99); MONOCYTES # (AUTO) 0.7 (0.2-0.8); MONOCYTES % 6.5 % (4.4-11.3); NEUTROPHILS # (AUTO) 7.2 (2.1-6.9); NEUTROPHILS % 66.2 % (38.7-80.0); PLATELET COUNT 352 x10e3/uL (140-360); RED BLOOD COUNT 3.57 x10e6/uL (4.3-5.7); RED CELL DISTRIBUTION WIDTH 14.6 % (11.7-14.4)
[2023-05-08 06:14] LABS: ANION GAP 16.8 mmol/L (8-16); CREATININE, SERUM 4.45 mg/dL (0.72-1.25); POTASSIUM 3.8 mmol/L (3.5-5.1)
[2023-05-08] MEDS ORDERED: ACETAMINOPHEN 1000 MG/100 ML 100 ML IV ONE (07:05)
[2023-05-08] MEDS: PANTOPRAZOLE SOD 40 MG TABEC PO SCH (07:30)
[2023-05-08] MEDS: INSULIN LISPRO 100 UNIT/1 ML 3ML VIAL SQ SCH ×4 (07:30→21:09)
[2023-05-08] MEDS: AMLODIPINE BESYLATE 10 MG TAB PO SCH (09:00)
[2023-05-08] MEDS: LINEZOLID 600 MG TAB PO SCH ×2 (09:00→16:06)
[2023-05-08] MEDS: ASPIRIN 81 MG CHEW TAB PO SCH (09:00)
[2023-05-08] MEDS: METOPROLOL TARTRATE 50 MG TAB PO SCH (09:00)
[2023-05-08] MEDS: SODIUM BICARBONATE 650 MG TAB PO SCH ×2 (09:00→16:06)
[2023-05-08] MEDS: SEVELAMER CARBONATE 800 MG TAB PO SCH ×3 (09:00→21:11)
[2023-05-08] MEDS: MUPIROCIN 2% OINT 22 GM TUBE TOP SCH ×2 (09:00→21:00)
[2023-05-08] MEDS: TERAZOSIN HCL 1 MG CAP PO SCH (09:00)
[2023-05-08] MEDS ORDERED: DEXAMETHASONE SOD PHOS INJ 4 MG/ML SDV ONE (09:19)
[2023-05-08] MEDS ORDERED: NEOSTIGMINE 1 MG/ML 10ML VIAL ONE (09:19)
[2023-05-08] MEDS ORDERED: BUPIVACAINE HCL 0.5% INJ 30 ML VIAL INJ ONE (09:19)
[2023-05-08] MEDS: SODIUM CHLORIDE 0.9% 1000ML 1,000 ML IV SCH ×2 (09:26→22:32)
[2023-05-08] MEDS ORDERED: FENTANYL CITRATE/PF 100MCG/2 ML INJ ONE (12:25)
[2023-05-08] MEDS ORDERED: ROPIVACAINE 0.5% 5 MG/ML 30 ML SDV ONE (13:15)
[2023-05-08] MEDS ORDERED: DEXAMETHASONE SOD PHOS 10 MG/1 ML VIAL ONE (13:15)
[2023-05-08] MEDS ORDERED: ACETAMINOPHEN 1000 MG/100 ML IV ONE (13:27)
[2023-05-08] MEDS: ENOXAPARIN 30 MG/0.3 ML SYR SC SCH (16:32)
[2023-05-08] MEDS: SIMVASTATIN 40 MG TAB PO SCH (21:10)
[2023-05-08] MEDS: INSULIN GLARGINE 100 UNITS/ML VIAL SQ SCH (21:17)
[2023-05-09] VITALS (8 sets, daily range): BP systolic 134–153; BP diastolic 67–78; PULSE 64–89; RESP 18–20; TEMP 97.5–98; O2SAT 96–100
[2023-05-09 06:56] LABS: HEMATOCRIT 28.9 % (38.2-49.6); HEMOGLOBIN 9.1 g/dL (14.0-18.0)
[2023-05-09 07:19] LABS: ALBUMIN 2.4 g/dL (3.5-5.0); ALBUMIN/GLOBULIN RATIO 0.5 (0.8-2.0); ANION GAP 14.9 mmol/L (8-16); CALCIUM 8.2 mg/dL (8.4-10.2); CREATININE, SERUM 3.91 mg/dL (0.72-1.25); POTASSIUM 3.9 mmol/L (3.5-5.1)
[2023-05-09] MEDS: SODIUM BICARBONATE 650 MG TAB PO SCH ×2 (08:16→16:54)
[2023-05-09] MEDS: METOPROLOL TARTRATE 50 MG TAB PO SCH (08:16)
[2023-05-09] MEDS: PANTOPRAZOLE SOD 40 MG TABEC PO SCH (08:16)
[2023-05-09] MEDS: LINEZOLID 600 MG TAB PO SCH ×2 (08:16→16:54)
[2023-05-09] MEDS: SEVELAMER CARBONATE 800 MG TAB PO SCH ×3 (08:16→21:17)
[2023-05-09] MEDS: TERAZOSIN HCL 1 MG CAP PO SCH (08:16)
[2023-05-09] MEDS: ASPIRIN 81 MG CHEW TAB PO SCH (08:16)
[2023-05-09] MEDS: INSULIN LISPRO 100 UNIT/1 ML 3ML VIAL SQ SCH ×5 (08:20→21:23)
[2023-05-09] MEDS: AMLODIPINE BESYLATE 10 MG TAB PO SCH (08:22)
[2023-05-09] MEDS: MUPIROCIN 2% OINT 22 GM TUBE TOP SCH ×2 (09:00→21:00)
[2023-05-09] MEDS: SODIUM CHLORIDE 0.9% 1000ML 1,000 ML IV SCH (12:25)
[2023-05-09 15:05] LABS: ANION GAP 17.1 mmol/L (8-16); CALCIUM 8.2 mg/dL (8.4-10.2); CREATININE, SERUM 3.95 mg/dL (0.72-1.25); POTASSIUM 4.1 mmol/L (3.5-5.1)
[2023-05-09] MEDS ORDERED: DEXTROSE 50% SYRINGE 50 ML IV PRN (15:45)
[2023-05-09] MEDS: ENOXAPARIN 30 MG/0.3 ML SYR SC SCH (16:54)
[2023-05-09] MEDS ORDERED: TRESIBA 200 UNIT/ML SC SCH (21:00)
[2023-05-09] MEDS: SIMVASTATIN 40 MG TAB PO SCH (21:17)
[2023-05-10] VITALS: BP 137/77; PULSE 73; RESP 17; TEMP 98; O2SAT 96
[2023-05-10 04:00] VITALS: BP 135/73; PULSE 71; RESP 20; TEMP 97.5; O2SAT 100
[2023-05-10] MEDS: MUPIROCIN 2% OINT 22 GM TUBE TOP SCH (07:58)
[2023-05-10 08:07] VITALS: BP 142/77; PULSE 70; RESP 18; TEMP 98; O2SAT 96
[2023-05-10 09:05] VITALS: BP 142/77; PULSE 70; RESP 18; TEMP 98; O2SAT 96
[2023-05-10] MEDS: AMLODIPINE BESYLATE 10 MG TAB PO SCH (09:18)
[2023-05-10] MEDS: ASPIRIN 81 MG CHEW TAB PO SCH (09:19)
[2023-05-10] MEDS: SODIUM BICARBONATE 650 MG TAB PO SCH (09:19)
[2023-05-10] MEDS: TERAZOSIN HCL 1 MG CAP PO SCH (09:19)
[2023-05-10] MEDS: LINEZOLID 600 MG TAB PO SCH (09:20)
[2023-05-10] MEDS: PANTOPRAZOLE SOD 40 MG TABEC PO SCH (09:20)
[2023-05-10] MEDS: METOPROLOL TARTRATE 50 MG TAB PO SCH (09:20)
[2023-05-10] MEDS: SEVELAMER CARBONATE 800 MG TAB PO SCH ×2 (09:20→14:33)
[2023-05-10] MEDS: INSULIN LISPRO 100 UNIT/1 ML 3ML VIAL SQ SCH ×4 (09:31→12:53)
[2023-05-10 12:37] VITALS: BP 129/65; PULSE 64; RESP 17; TEMP 98; O2SAT 100
[2023-05-10 16:33] VITALS: BP 130/76; PULSE 66; RESP 17; TEMP 97.7; O2SAT 100
== END 2023-05-10 17:55 | disposition home or self-care (01) | DRG 982 ==
LOC: ER 19:23 → ERHOLD 21:57 → MED/SURG3 23:40 → OBSVTOIN 05-05 08:44 → INTOOBSV 05-05 08:44
PROVIDERS: ADMIT Internal Medicine; ATTEND Internal Medicine
PROC: 0KBV0ZZ Excision of Right Foot Muscle, Open Approach (ICD-10-PCS; principal; 2023-05-08 10:10)
DX: E11.52 Type 2 diabetes mellitus with diabetic peripheral angiopathy with gangrene (principal); L02.611 Cutaneous abscess of right foot; L97.419 Non-pressure chronic ulcer of right heel and midfoot with unspecified severity; N18.5 Chronic kidney disease, stage 5; Z68.43 Body mass index [BMI] 50.0-59.9, adult; N25.81 Secondary hyperparathyroidism of renal origin; E11.621 Type 2 diabetes mellitus with foot ulcer; E11.22 Type 2 diabetes mellitus with diabetic chronic kidney disease; I12.9 Hypertensive chronic kidney disease with stage 1 through stage 4 chronic kidney disease, or unspecified chronic kidney disease; E66.01 Morbid (severe) obesity due to excess calories; D63.1 Anemia in chronic kidney disease; E78.5 Hyperlipidemia, unspecified; I48.91 Unspecified atrial fibrillation; L97.519 Non-pressure chronic ulcer of other part of right foot with unspecified severity; Z89.422 Acquired absence of other left toe(s); Z86.73 Personal history of transient ischemic attack (TIA), and cerebral infarction without residual deficits; Z20.822 Contact with and (suspected) exposure to COVID-19; Z79.82 Long term (current) use of aspirin; Z91.148 Patient's other noncompliance with medication regimen for other reason; Z79.4 Long term (current) use of insulin
CPT/HCPCS: 0223U; 36415; 80048; 80053; 80061; 80202; 82575; 82728; 82948; 83036; 83540; 84443; 84466; 85014; 85018; 85025; 87071; 87075; 87186; 87205; 93925; 94799; 96372; 99252; 99284; G0378; J0692; J1100; J1650; J2710; J2795; J7030; J7040; J7050

== ENCOUNTER 2024-05-02 15:57 | Inpatient (IN) | payer BC, MEDICARE ==
[~2024-05-02] VITALS: Ht 195.6 cm; Wt 209.6 kg
[2024-05-02] VITALS (7 sets, daily range): BP systolic 151; BP diastolic 56; PULSE 59–60; RESP 18–20; TEMP 97.4–97.6; O2SAT 100
[~2024-05-02 15:57] MED LIST changes: +ACETAMINOPHEN325 M1 PO; +ALOGLIPTIN6.25 MG; +AMIODARONE HCL200 MG PO; +AMLODIPINE BESY10 MG PO; +ARANESP40 MCG/0.4; +BUMETANIDE1 MG PO; +CARVEDILOL ER10 MG; +DEXAMETHASONE SOD PHOS 10 MG/1 ML VIAL ONE; +DULCOLAX10 MG PR; +ELIQUIS5 MG PO; +GABAPENTIN300 MG/6 M; +HYDRALAZINE HCL10 MG PO; +HYDROCODONE-IB1 EACH; +HYTRIN1 M1 PO; +IODOSORB40 GM TOP; +IPRATROPIU0.2 MG/1 M INH; +IRON PO; +LAC-HYDRIN FIV226 GM TOP; +LANTUS 3ML100 UNITS/; +LOSARTAN POTASS25 MG PO; +METOLAZONE5 MG PO; +METOPROLOL TART50 MG PO; +MIDODRINE HCL5 MG PO; +MUPIROCIN22 GM TOP; +QUETIAPINE FUMA25 MG PO; +RENAGEL800 MG PO; +RENVELA0.8 GM PO; +ROPIVACAINE 0.5% 5 MG/ML 30 ML SDV ONE
[2024-05-02 17:21] LABS: BASOPHILS # (AUTO) 0.1 (0.0-0.1); BASOPHILS % 0.8 % (0.0-1.0); EOSINOPHILS # (AUTO) 0.7 (0.0-0.4); EOSINOPHILS % 5.3 % (0.0-6.0); HEMATOCRIT 36.3 % (38.2-49.6); HEMOGLOBIN 12.1 g/dL (14.0-18.0); LYMPHOCYTES % 22.2 % (18.0-39.1); MEAN CORPUSCULAR HEMOGLOBIN 28.7 pg (28-32); MEAN CORPUSCULAR HGB CONC 33.3 g/dL (31-35); MEAN CORPUSCULAR VOLUME 86.2 fL (81-99); MONOCYTES # (AUTO) 0.7 (0.2-0.8); MONOCYTES % 5.4 % (4.4-11.3); NEUTROPHILS % 66.1 % (38.7-80.0); PLATELET COUNT 343 x10e3/uL (140-360); RED BLOOD COUNT 4.21 x10e6/uL (4.3-5.7); RED CELL DISTRIBUTION WIDTH 14.4 % (11.7-14.4); WHITE BLOOD COUNT 13.59 x10e3/uL (4.8-10.8)
[2024-05-02 17:35] LABS: INR 1.05; PARTIAL THROMBOPLASTIN TIME 32.8 seconds (23.8-35.5); PROTHROMBIN TIME 14.4 seconds (11.9-14.5)
[2024-05-02 17:41] LABS: ALBUMIN/GLOBULIN RATIO 0.6 (0.8-2.0); ANION GAP 21.6 mmol/L (8-16); BILIRUBIN,TOTAL 0.6 mg/dL (0.2-1.2); CALCIUM 9.1 mg/dL (8.4-10.2); CREATININE, SERUM 4.95 mg/dL (0.72-1.25); MAGNESIUM 1.9 MG/DL (1.3-2.1); POTASSIUM 3.6 mmol/L (3.5-5.1); TOTAL PROTEIN 7.7 g/dL (6.5-8.1)
[2024-05-02] MEDS: Vancomycin IV 1 GM in SODIUM CHLORIDE 0.9% 250ML 250 ML IV ONE (18:07)
[2024-05-02] MEDS: INSULIN REGULAR, HUMAN 100 UNIT/1 ML IV ONE (18:40)
[2024-05-02] MEDS ORDERED: ONDANSETRON HCL INJ 2MG/ML 2ML 2 MG/ML VIAL IV PRN (18:45)
[2024-05-02] MEDS ORDERED: ACETAMINOPHEN 325 MG TAB PO PRN (18:45)
[2024-05-02] MEDS ORDERED: HYDROCODONE/APAP 5MG-325MG TAB PO PRN (18:45)
[2024-05-02] MEDS: SEVELAMER CARBONATE 800 MG TAB PO SCH (22:24)
[2024-05-02] MEDS: HEPARIN SOD (PORCINE) 5,000 UNIT/ML VIAL SC SCH (22:29)
[2024-05-03] VITALS (10 sets, daily range): BP systolic 120–164; BP diastolic 56–79; PULSE 56–64; RESP 18–20; TEMP 97.7–98.6; O2SAT 95–100
[2024-05-03 05:47] LABS: BASOPHILS # (AUTO) 0.1 (0.0-0.1); EOSINOPHILS # (AUTO) 0.9 (0.0-0.4); EOSINOPHILS % 8.7 % (0.0-6.0); HEMATOCRIT 34.9 % (38.2-49.6); HEMOGLOBIN 11.5 g/dL (14.0-18.0); LYMPHOCYTES # (AUTO) 3.3 (1.0-3.2); LYMPHOCYTES % 30.8 % (18.0-39.1); MEAN CORPUSCULAR HEMOGLOBIN 28.3 pg (28-32); MONOCYTES # (AUTO) 0.6 (0.2-0.8); MONOCYTES % 5.9 % (4.4-11.3); NEUTROPHILS # (AUTO) 5.7 (2.1-6.9); NEUTROPHILS % 53.3 % (38.7-80.0); PLATELET COUNT 307 x10e3/uL (140-360); RED BLOOD COUNT 4.06 x10e6/uL (4.3-5.7); RED CELL DISTRIBUTION WIDTH 14.2 % (11.7-14.4); WHITE BLOOD COUNT 10.73 x10e3/uL (4.8-10.8)
[2024-05-03 06:21] LABS: ALBUMIN 2.8 g/dL (3.5-5.0); ALBUMIN/GLOBULIN RATIO 0.7 (0.8-2.0); ANION GAP 16.2 mmol/L (8-16); BILIRUBIN,TOTAL 0.6 mg/dL (0.2-1.2); CALCIUM 8.9 mg/dL (8.4-10.2); CREATININE, SERUM 4.94 mg/dL (0.72-1.25); TOTAL PROTEIN 6.9 g/dL (6.5-8.1)
[2024-05-03 06:25] LABS: POTASSIUM 3.2 mmol/L (3.5-5.1)
[2024-05-03] MEDS: FERROUS SULFATE 325 MG TAB PO SCH (09:33)
[2024-05-03] MEDS: METOPROLOL TARTRATE 50 MG TAB PO SCH (09:33)
[2024-05-03] MEDS: INSULIN LISPRO 100 UNIT/1 ML 3ML VIAL SQ SCH (09:33)
[2024-05-03] MEDS: SIMVASTATIN 40 MG TAB PO SCH (09:34)
[2024-05-03] MEDS: MIDODRINE 2.5 MG TAB PO PRN (15:02)
[2024-05-03] MEDS ORDERED: SODIUM CHLORIDE 0.9% 1000ML 2,000 ML IV PRN (15:30)
[2024-05-04] VITALS (12 sets, daily range): BP systolic 127–161; BP diastolic 51–82; PULSE 60–73; RESP 16–20; TEMP 97.6–98.4; O2SAT 95–100
[2024-05-04] MEDS: Vancomycin IV 1 GM in SODIUM CHLORIDE 0.9% 250ML 250 ML IV ONE (00:01)
[2024-05-04 05:35] LABS: BASOPHILS # (AUTO) 0.1 (0.0-0.1); BASOPHILS % 1.1 % (0.0-1.0); EOSINOPHILS # (AUTO) 1.1 (0.0-0.4); EOSINOPHILS % 8.9 % (0.0-6.0); HEMATOCRIT 37.7 % (38.2-49.6); HEMOGLOBIN 12.2 g/dL (14.0-18.0); LYMPHOCYTES # (AUTO) 3.8 (1.0-3.2); LYMPHOCYTES % 30.7 % (18.0-39.1); MEAN CORPUSCULAR HEMOGLOBIN 28.6 pg (28-32); MEAN CORPUSCULAR HGB CONC 32.4 g/dL (31-35); MEAN CORPUSCULAR VOLUME 88.3 fL (81-99); MONOCYTES # (AUTO) 0.7 (0.2-0.8); MONOCYTES % 5.7 % (4.4-11.3); NEUTROPHILS # (AUTO) 6.6 (2.1-6.9); NEUTROPHILS % 53.3 % (38.7-80.0); PLATELET COUNT 346 x10e3/uL (140-360); RED BLOOD COUNT 4.27 x10e6/uL (4.3-5.7); RED CELL DISTRIBUTION WIDTH 14.5 % (11.7-14.4); WHITE BLOOD COUNT 12.45 x10e3/uL (4.8-10.8)
[2024-05-04 06:23] LABS: ANION GAP 15.4 mmol/L (8-16); CREATININE, SERUM 4.2 mg/dL (0.72-1.25)
[2024-05-04 06:30] LABS: POTASSIUM 3.4 mmol/L (3.5-5.1)
[2024-05-04] MEDS: BALSAM PERU/CASTOR OIL 60 GM OINT...G. TP SCH (08:32)
[2024-05-04] MEDS: TRESIBA 10 UNITS SC SCH (09:00)
[2024-05-04] MEDS ORDERED: INSULIN DEGLUDEC 60 UNIT SC SCH (09:00)
[2024-05-04] MEDS ORDERED: DEXTROSE 50% SYRINGE 50 ML IV PRN (09:15)
[2024-05-04] MEDS: INSULIN LISPRO 100 UNIT/1 ML 3ML VIAL SQ SCH (09:44)
[2024-05-04] MEDS ORDERED: MIDAZOLAM HCL 2 MG/2 ML VIAL ONE ×2 (10:37→12:07)
[2024-05-04] MEDS ORDERED: FENTANYL CITRATE/PF 100MCG/2 ML INJ ONE ×2 (10:37→12:06)
[2024-05-04] MEDS ORDERED: ACETAMINOPHEN 1000 MG/100 ML IV ONE (10:41)
[2024-05-04] MEDS ORDERED: DEXMEDETOMIDINE HCL 200 MCG/2 ML VIAL ONE (10:41)
[2024-05-04] MEDS ORDERED: MUPIROCIN 2% OINT 22 GM TUBE ONE (13:05)
[2024-05-04] MEDS: CEFAZOLIN SODIUM 2 GM in SODIUM CHLORIDE 0.9% 100 ML IV SCH (14:13)
[2024-05-04] MEDS: INSULIN LISPRO 100 UNIT/1 ML 3ML VIAL SQ ONE (23:03)
[2024-05-05] VITALS (7 sets, daily range): BP systolic 124–164; BP diastolic 59–80; PULSE 58–71; RESP 16–19; TEMP 97.7–98.6; O2SAT 92–97
[2024-05-05 08:00] LABS: HEPATITIS B SURFACE AG (P) Negative
[2024-05-05 08:01] LABS: HEPATITIS C ANTIBODY Non Reactive
[2024-05-05] MEDS ORDERED: ALBUMIN 25% 12.5GM 50ML 50 ML IV ONE (08:26)
[2024-05-05] MEDS ORDERED: [UNRECOGNIZED DRUG - OTHER] SC SCH (09:30)
[2024-05-05] MEDS ORDERED: VIAGRA25 MG PO (10:00)
[2024-05-05] MEDS ORDERED: BACTRIM DS TAB1 EACH PO (10:00)
[2024-05-05] MEDS ORDERED: ONDANSETRON HCL 4 MG ORAL DISINTEGRATING TAB PO PRN (10:15)
[2024-05-05] MEDS ORDERED: HEPARIN SOD (PORCINE) 1000 UNIT/ML SDV IV PRN (10:30)
[2024-05-05] MEDS ORDERED: MANNITOL 25% 12.5GM/50 ML VIAL IV PRN (10:30)
[2024-05-05] MEDS ORDERED: ALBUMIN 25% 12.5GM 0.25 GM/ML BTL IV PRN ×2 (10:30)
[2024-05-05] MEDS ORDERED: SODIUM CHLORIDE 0.9% 250ML 500 ML IV PRN (10:30)
[2024-05-05] MEDS ORDERED: SODIUM CHLORIDE 0.9% 1000ML 2,000 ML IV PRN (10:30)
== END 2024-05-05 15:31 | disposition home or self-care (01) | DRG 255 ==
LOC: ER 17:30 → ERHOLD 18:10 → MED/SURG2 20:37
PROVIDERS: ADMIT Internal Medicine; ATTEND Internal Medicine
PROC: 5A1D70Z Performance of Urinary Filtration, Intermittent, Less than 6 Hours Per Day (ICD-10-PCS; 2024-05-03)
PROC: 0X6S0Z2 Detachment at Right Ring Finger, Mid, Open Approach (ICD-10-PCS; principal; 2024-05-04 12:31)
DX: E11.52 Type 2 diabetes mellitus with diabetic peripheral angiopathy with gangrene (principal); N18.6 End stage renal disease; I13.2 Hypertensive heart and chronic kidney disease with heart failure and with stage 5 chronic kidney disease, or end stage renal disease; Z68.43 Body mass index [BMI] 50.0-59.9, adult; E11.22 Type 2 diabetes mellitus with diabetic chronic kidney disease; E66.01 Morbid (severe) obesity due to excess calories; D63.1 Anemia in chronic kidney disease; E11.42 Type 2 diabetes mellitus with diabetic polyneuropathy; I50.9 Heart failure, unspecified; L03.011 Cellulitis of right finger; E11.65 Type 2 diabetes mellitus with hyperglycemia; Z99.2 Dependence on renal dialysis; Z11.52 Encounter for screening for COVID-19; I48.0 Paroxysmal atrial fibrillation; E78.5 Hyperlipidemia, unspecified; E87.6 Hypokalemia; G47.33 Obstructive sleep apnea (adult) (pediatric); Z79.4 Long term (current) use of insulin; D72.829 Elevated white blood cell count, unspecified; M72.0 Palmar fascial fibromatosis [Dupuytren]; Z89.412 Acquired absence of left great toe; Z89.422 Acquired absence of other left toe(s); Z79.01 Long term (current) use of anticoagulants; Z79.82 Long term (current) use of aspirin; F17.290 Nicotine dependence, other tobacco product, uncomplicated
CPT/HCPCS: 36415; 71045; 80048; 80053; 80202; 82948; 83735; 85025; 85610; 85730; 87040; 87086; 87340; 88304; 88311; 93005; 94660; 94799; 99252; 99284; J0692; J1100; J1644; J2250; J2795; J7030; J7050; U0002

== ENCOUNTER → 2024-06-01 | Day surgery (SDC) | payer BC, MEDICARE ==
[~2024-06-01] MED LIST changes: +ACETAMINOPHEN 1000 MG/100 ML IV ONE; +BACITRACIN ZINC 15 GM OINT ONE; +BACTRIM DS TAB1 EACH PO; +BUPIVACAINE HCL 0.5% INJ 30 ML VIAL INJ ONE; +FENTANYL CITRATE/PF 100MCG/2 ML INJ ONE; +HYDROCODON-ACE1 EA12 PO; +LACTATED RINGER'S 0 ML ONE; +LIDOCAINE HCL 2% LOCAL 20 ML VIAL ONE; +LIDOCAINE HCL 2% LOCAL INJ 5 ML SDV VIAL INJ ONE; +MEPIVACAINE HCL 2% 20 ML VIAL ONE; +MIDAZOLAM HCL 2 MG/2 ML VIAL ONE; +PROPOFOL IV EMULSION 10 MG/ML 20 ML VIAL ONE; -ROPIVACAINE 0.5% 5 MG/ML 30 ML SDV ONE; +VIAGRA25 MG PO
[2024-06-01] MEDS: SODIUM CHLORIDE 0.9% 500ML 500 ML ONE (06:08)
[2024-06-01 06:28] LABS: BASOPHILS # (AUTO) 0.1 (0.0-0.1); BASOPHILS % 0.7 % (0.0-1.0); EOSINOPHILS # (AUTO) 0.7 (0.0-0.4); EOSINOPHILS % 6.1 % (0.0-6.0); HEMATOCRIT 38.5 % (38.2-49.6); HEMOGLOBIN 12.6 g/dL (14.0-18.0); LYMPHOCYTES # (AUTO) 3.7 (1.0-3.2); LYMPHOCYTES % 30.3 % (18.0-39.1); MEAN CORPUSCULAR HEMOGLOBIN 28.7 pg (28-32); MEAN CORPUSCULAR HGB CONC 32.7 g/dL (31-35); MEAN CORPUSCULAR VOLUME 87.7 fL (81-99); MONOCYTES # (AUTO) 0.7 (0.2-0.8); MONOCYTES % 6.1 % (4.4-11.3); NEUTROPHILS # (AUTO) 6.8 (2.1-6.9); NEUTROPHILS % 56.4 % (38.7-80.0); PLATELET COUNT 244 x10e3/uL (140-360); RED BLOOD COUNT 4.39 x10e6/uL (4.3-5.7); RED CELL DISTRIBUTION WIDTH 14.7 % (11.7-14.4); WHITE BLOOD COUNT 12.11 x10e3/uL (4.8-10.8)
[2024-06-01 06:42] LABS: INR 0.95; PROTHROMBIN TIME 13.4 seconds (11.9-14.5)
[2024-06-01 06:43] LABS: PARTIAL THROMBOPLASTIN TIME 33.3 seconds (23.8-35.5)
[2024-06-01 06:47] LABS: ANION GAP 17.5 mmol/L (8-16); CALCIUM 9.4 mg/dL (8.4-10.2); CREATININE, SERUM 3.57 mg/dL (0.72-1.25); POTASSIUM 3.5 mmol/L (3.5-5.1)
[2024-06-01 08:40] VITALS: TEMP 98.4
[2024-06-01 09:36] VITALS: BP 118/58; PULSE 55; RESP 18; O2SAT 99
== END | disposition home or self-care (01) ==
LOC: OR 05:44
PROVIDERS: ATTEND Plastic Surgery
DX: I96 Gangrene, not elsewhere classified (principal); G47.33 Obstructive sleep apnea (adult) (pediatric); D64.9 Anemia, unspecified; I69.351 Hemiplegia and hemiparesis following cerebral infarction affecting right dominant side; E11.22 Type 2 diabetes mellitus with diabetic chronic kidney disease; I12.0 Hypertensive chronic kidney disease with stage 5 chronic kidney disease or end stage renal disease; N18.6 End stage renal disease; Z99.2 Dependence on renal dialysis; Z89.429 Acquired absence of other toe(s), unspecified side; E78.5 Hyperlipidemia, unspecified; Z79.82 Long term (current) use of aspirin; Z79.4 Long term (current) use of insulin; Z79.02 Long term (current) use of antithrombotics/antiplatelets; Z79.899 Other long term (current) drug therapy
CPT/HCPCS: 26910; 36415; 80048; 85025; 85610; 85730; 88305; 88311; J0131; J0670; J0690; J1100; J2001 ×2; J2250; J2704; J3010; J7040; 88304

== ENCOUNTER 2025-01-01 21:33 | Inpatient (IN) | payer MEDICARE, BC ==
[~2025-01-01] VITALS: Ht 195.6 cm; Wt 193.7 kg
[~2025-01-01 21:33] MED LIST changes: -ACETAMINOPHEN 1000 MG/100 ML IV ONE; -BACITRACIN ZINC 15 GM OINT ONE; -BUPIVACAINE HCL 0.5% INJ 30 ML VIAL INJ ONE; -DEXAMETHASONE SOD PHOS 10 MG/1 ML VIAL ONE; -FENTANYL CITRATE/PF 100MCG/2 ML INJ ONE; -LACTATED RINGER'S 0 ML ONE; -LIDOCAINE HCL 2% LOCAL 20 ML VIAL ONE; -LIDOCAINE HCL 2% LOCAL INJ 5 ML SDV VIAL INJ ONE; -MEPIVACAINE HCL 2% 20 ML VIAL ONE; -MIDAZOLAM HCL 2 MG/2 ML VIAL ONE; -PROPOFOL IV EMULSION 10 MG/ML 20 ML VIAL ONE
[2025-01-01 22:13] LABS: BASOPHILS # (AUTO) 0.1 (0.0-0.1); BASOPHILS % 0.4 % (0.0-1.0); EOSINOPHILS # (AUTO) 0.4 (0.0-0.4); EOSINOPHILS % 1.5 % (0.0-6.0); HEMATOCRIT 34.4 % (38.2-49.6); HEMOGLOBIN 11.9 g/dL (14.0-18.0); LYMPHOCYTES # (AUTO) 2.8 (1.0-3.2); LYMPHOCYTES % 11.7 % (18.0-39.1); MEAN CORPUSCULAR HEMOGLOBIN 29.3 pg (28-32); MEAN CORPUSCULAR HGB CONC 34.6 g/dL (31-35); MEAN CORPUSCULAR VOLUME 84.7 fL (81-99); MONOCYTES # (AUTO) 1.3 (0.2-0.8); MONOCYTES % 5.4 % (4.4-11.3); NEUTROPHILS # (AUTO) 19.5 (2.1-6.9); NEUTROPHILS % 80.3 % (38.7-80.0); PLATELET COUNT 263 x10e3/uL (140-360); RED BLOOD COUNT 4.06 x10e6/uL (4.3-5.7); RED CELL DISTRIBUTION WIDTH 13.6 % (11.7-14.4); WHITE BLOOD COUNT 24.25 x10e3/uL (4.8-10.8)
[2025-01-01] MEDS: SODIUM CHLORIDE 0.9% 1000ML 1,000 ML IV STA ×2 (22:22→23:05)
[2025-01-01] MEDS: ACETAMINOPHEN 325 MG TAB PO STA (22:23)
[2025-01-01 22:34] LABS: CORONAVIRUS COVID-19 AG NEGATIVE (NEGATIVE); INFLUENZA A AG NEGATIVE (NEGATIVE); INFLUENZA B AG NEGATIVE (NEGATIVE)
[2025-01-01 22:35] LABS: ALBUMIN 3.2 g/dL (3.5-5.0); ALBUMIN/GLOBULIN RATIO 0.7 (0.8-2.0); ANION GAP 22.7 mmol/L (8-16); CALCIUM 9.4 mg/dL (8.4-10.2); CREATININE, SERUM 4.5 mg/dL (0.72-1.25); POTASSIUM 3.7 mmol/L (3.5-5.1); TOTAL PROTEIN 7.7 g/dL (6.5-8.1)
[2025-01-01 22:41] LABS: TROPONIN I 0.04 ng/mL (0-0.300)
[2025-01-01 22:44] LABS: STREPTOCOCCUS GRP A ANTIGEN NEGATIVE (NEGATIVE)
[2025-01-01 23:40] VITALS: PULSE 77; RESP 19; TEMP 99.1
[2025-01-01] MEDS ORDERED: ONDANSETRON HCL INJ 2MG/ML 2ML 2 MG/ML VIAL IV PRN (23:45)
[2025-01-01] MEDS ORDERED: SODIUM CHLORIDE FLUSH 10 ML SYR INJ PRN (23:45)
[2025-01-02] VITALS (38 sets, daily range): BP systolic 106–153; BP diastolic 43–97; PULSE 59–84; RESP 14–24; TEMP 98.2–100; O2SAT 89–99
[2025-01-02] MEDS ORDERED: TORSEMIDE20 MG PO (01:24)
[2025-01-02] MEDS ORDERED: RENA-VITE TABL0.8 MG (01:24)
[2025-01-02] MEDS ORDERED: METOPROLOL TART50 MG PO (01:24)
[2025-01-02] MEDS ORDERED: ASPIRIN EC81 MG PO (01:24)
[2025-01-02] MEDS ORDERED: ROSUVASTATIN CA40 MG PO (01:24)
[2025-01-02] MEDS: Morphine 4mg INJECTION 4 MG/ML INJ IV PRN (05:03)
[2025-01-02 06:39] LABS: TROPONIN I 0.037 ng/mL (0-0.300)
[2025-01-02 06:50] LABS: BASOPHILS # (AUTO) 0.1 (0.0-0.1); BASOPHILS % 0.4 % (0.0-1.0); EOSINOPHILS # (AUTO) 0.2 (0.0-0.4); EOSINOPHILS % 1.2 % (0.0-6.0); HEMATOCRIT 30.4 % (38.2-49.6); HEMOGLOBIN 10.6 g/dL (14.0-18.0); LYMPHOCYTES % 12.4 % (18.0-39.1); MEAN CORPUSCULAR HGB CONC 34.9 g/dL (31-35); MEAN CORPUSCULAR VOLUME 83.3 fL (81-99); MONOCYTES # (AUTO) 0.9 (0.2-0.8); MONOCYTES % 5.3 % (4.4-11.3); NEUTROPHILS % 80.3 % (38.7-80.0); PLATELET COUNT 210 x10e3/uL (140-360); RED BLOOD COUNT 3.65 x10e6/uL (4.3-5.7); RED CELL DISTRIBUTION WIDTH 13.9 % (11.7-14.4); WHITE BLOOD COUNT 16.15 x10e3/uL (4.8-10.8)
[2025-01-02 07:03] LABS: ALBUMIN 2.7 g/dL (3.5-5.0); ALBUMIN/GLOBULIN RATIO 0.7 (0.8-2.0); ANION GAP 15.4 mmol/L (8-16); BILIRUBIN,TOTAL 0.9 mg/dL (0.2-1.2); CALCIUM 8.7 mg/dL (8.4-10.2); CREATININE, SERUM 4.5 mg/dL (0.72-1.25); TOTAL PROTEIN 6.4 g/dL (6.5-8.1)
[2025-01-02 07:04] LABS: POTASSIUM 3.4 mmol/L (3.5-5.1)
[2025-01-02] MEDS ORDERED: HYDROCODONE/APAP 7.5MG-325MG 1 EA TAB PO PRN (08:00)
[2025-01-02] MEDS ORDERED: BENZONATATE 100 MG CAP PO PRN (08:00)
[2025-01-02] MEDS ORDERED: HYDRALAZINE HCL 20 MG/ML VIAL IV PRN (08:00)
[2025-01-02] MEDS: AMLODIPINE BESYLATE 10 MG TAB PO SCH (09:44)
[2025-01-02] MEDS: SEVELAMER CARBONATE 800 MG TAB PO SCH (09:44)
[2025-01-02] MEDS: ASPIRIN 81 MG ENTERIC COATED PO SCH (09:45)
[2025-01-02] MEDS: APIXABAN 2.5 MG TABLET PO SCH (09:45)
[2025-01-02] MEDS: METOPROLOL TARTRATE 50 MG TAB PO SCH (09:45)
[2025-01-02] MEDS: AMIODARONE HCL 200 MG TAB PO SCH (09:45)
[2025-01-02] MEDS: SODIUM BICARBONATE 650 MG TAB PO SCH (09:45)
[2025-01-02 15:17] LABS: TROPONIN I 0.032 ng/mL (0-0.300)
[2025-01-02] MEDS ORDERED: PIPERACILLIN/TAZOBACTAM 3.375 GM VIAL ONE (17:14)
[2025-01-02] MEDS: Vancomycin IV 1 GM in SODIUM CHLORIDE 0.9% 250ML 250 ML IV SCH (18:15)
[2025-01-02] MEDS ORDERED: SODIUM CHLORIDE 0.9% 1000ML 2,000 ML IV PRN (18:15)
[2025-01-02] MEDS ORDERED: INSULIN LISPRO 100 UNIT/1 ML 3ML VIAL SQ SCH (21:00)
[2025-01-02] MEDS ORDERED: DEXTROSE 50% SYRINGE 50 ML IV PRN (21:00)
[2025-01-02] MEDS: INSULIN LISPRO 100 UNIT/1 ML 3ML VIAL SQ SCH (21:00)
[2025-01-02] MEDS ORDERED: SIMVASTATIN 40 MG TAB PO SCH (21:00)
[2025-01-02] MEDS: CRESTOR 10MG PO SCH (21:00)
[2025-01-03] VITALS (26 sets, daily range): BP systolic 106–134; BP diastolic 35–69; PULSE 60–82; RESP 13–26; TEMP 98–98.6; O2SAT 92–100
[2025-01-03 07:32] LABS: BASOPHILS # (AUTO) 0.1 (0.0-0.1); BASOPHILS % 0.7 % (0.0-1.0); EOSINOPHILS # (AUTO) 0.8 (0.0-0.4); EOSINOPHILS % 7.4 % (0.0-6.0); HEMOGLOBIN 10.7 g/dL (14.0-18.0); LYMPHOCYTES # (AUTO) 2.3 (1.0-3.2); LYMPHOCYTES % 20.9 % (18.0-39.1); MEAN CORPUSCULAR HEMOGLOBIN 28.8 pg (28-32); MEAN CORPUSCULAR HGB CONC 33.4 g/dL (31-35); NEUTROPHILS # (AUTO) 6.9 (2.1-6.9); NEUTROPHILS % 61.6 % (38.7-80.0); PLATELET COUNT 217 x10e3/uL (140-360); RED BLOOD COUNT 3.72 x10e6/uL (4.3-5.7); WHITE BLOOD COUNT 11.15 x10e3/uL (4.8-10.8)
[2025-01-03 08:08] LABS: ANION GAP 15.6 mmol/L (8-16); CALCIUM 8.8 mg/dL (8.4-10.2); CREATININE, SERUM 3.92 mg/dL (0.72-1.25); POTASSIUM 3.6 mmol/L (3.5-5.1)
[2025-01-03] MEDS: PANTOPRAZOLE SOD 40 MG TABEC PO SCH (08:08)
[2025-01-03 08:59] LABS: TROPONIN I 0.014 ng/mL (0-0.300)
[2025-01-03] MEDS: ACETAMINOPHEN 325 MG TAB PO PRN (11:48)
[2025-01-03] MEDS ORDERED: IOPAMIDOL 370 MG/ML 100 ML INFUS..BTL INJ ONE (19:20)
[2025-01-03 19:55] LABS: BILIRUBIN,URINE NEGATIVE (NEGATIVE); CLARITY,URINE CLEAR (CLEAR); COLOR,URINE YELLOW (YELLOW); GLUCOSE, URINE 2+ (NEGATIVE); KETONES,URINE NEGATIVE (NEGATIVE); LEUKOCYTE ESTERASE ,URINE NEGATIVE (NEGATIVE); NITRITE,URINE NEGATIVE (NEGATIVE); PH,URINE 6 (5 - 7); PROTEIN,URINE DIPSTICK >=300 (NEGATIVE); URINE UROBILINOGEN 0.2 mg/dL (0.2 - 1)
[2025-01-03 19:56] LABS: BACTERIA,URINE MANY /HPF; EPITHELIAL CELLS,URINE RARE /LPF; RBC,URINE 0-5 /HPF (0-5); WBC,URINE (MAN) 0-5 /HPF (0-5)
[2025-01-04] VITALS (38 sets, daily range): BP systolic 76–150; BP diastolic 20–96; PULSE 48–90; RESP 6–23; TEMP 97.6–98.5; O2SAT 74–100
[2025-01-04 05:07] LABS: HEPATITIS B CORE AB TOTAL Negative; HEPATITIS B SURFACE AB QUANT 92.8; HEPATITIS B SURFACE AG (P) Negative
[2025-01-04 08:25] LABS: CHOL/HDL RATIO 5.7 (3.9-4.7)
[2025-01-04 09:01] LABS: ANION GAP 17.6 mmol/L (8-16); CALCIUM 8.5 mg/dL (8.4-10.2); CREATININE, SERUM 5.09 mg/dL (0.72-1.25); POTASSIUM 3.6 mmol/L (3.5-5.1)
[2025-01-04] MEDS: MIDODRINE HCL 5 MG TABLET PO PRN (13:45)
[2025-01-04] MEDS: Vancomycin IV 1 GM in SODIUM CHLORIDE 0.9% 250ML 250 ML IV SCH (18:46)
[2025-01-05] VITALS (21 sets, daily range): BP systolic 103–140; BP diastolic 45–88; PULSE 59–65; RESP 11–23; TEMP 97.8–98.6; O2SAT 81–100
[2025-01-05 07:08] LABS: BASOPHILS # (AUTO) 0.1 (0.0-0.1); BASOPHILS % 1.1 % (0.0-1.0); EOSINOPHILS # (AUTO) 0.8 (0.0-0.4); EOSINOPHILS % 8.1 % (0.0-6.0); HEMATOCRIT 30.9 % (38.2-49.6); HEMOGLOBIN 10.3 g/dL (14.0-18.0); LYMPHOCYTES # (AUTO) 2.7 (1.0-3.2); LYMPHOCYTES % 29.4 % (18.0-39.1); MEAN CORPUSCULAR HEMOGLOBIN 29.1 pg (28-32); MEAN CORPUSCULAR HGB CONC 33.3 g/dL (31-35); MEAN CORPUSCULAR VOLUME 87.3 fL (81-99); MONOCYTES # (AUTO) 0.7 (0.2-0.8); MONOCYTES % 7.4 % (4.4-11.3); NEUTROPHILS # (AUTO) 4.9 (2.1-6.9); NEUTROPHILS % 53.3 % (38.7-80.0); PLATELET COUNT 239 x10e3/uL (140-360); RED BLOOD COUNT 3.54 x10e6/uL (4.3-5.7); RED CELL DISTRIBUTION WIDTH 13.8 % (11.7-14.4); WHITE BLOOD COUNT 9.22 x10e3/uL (4.8-10.8)
[2025-01-06] VITALS (8 sets, daily range): BP systolic 117–139; BP diastolic 53–72; PULSE 54–64; RESP 15–18; TEMP 97.7–98.4; O2SAT 95–100
[2025-01-06 07:52] LABS: BASOPHILS # (AUTO) 0.1 (0.0-0.1); BASOPHILS % 0.9 % (0.0-1.0); EOSINOPHILS # (AUTO) 0.7 (0.0-0.4); EOSINOPHILS % 7.6 % (0.0-6.0); HEMATOCRIT 29.8 % (38.2-49.6); HEMOGLOBIN 10.1 g/dL (14.0-18.0); LYMPHOCYTES # (AUTO) 2.5 (1.0-3.2); MEAN CORPUSCULAR HEMOGLOBIN 28.7 pg (28-32); MEAN CORPUSCULAR HGB CONC 33.9 g/dL (31-35); MEAN CORPUSCULAR VOLUME 84.7 fL (81-99); MONOCYTES # (AUTO) 0.6 (0.2-0.8); MONOCYTES % 6.4 % (4.4-11.3); NEUTROPHILS # (AUTO) 5.2 (2.1-6.9); NEUTROPHILS % 57.5 % (38.7-80.0); PLATELET COUNT 254 x10e3/uL (140-360); RED BLOOD COUNT 3.52 x10e6/uL (4.3-5.7); RED CELL DISTRIBUTION WIDTH 13.8 % (11.7-14.4); WHITE BLOOD COUNT 9.08 x10e3/uL (4.8-10.8)
[2025-01-06 08:55] LABS: ANION GAP 16.7 mmol/L (8-16); CALCIUM 8.4 mg/dL (8.4-10.2); CREATININE, SERUM 5.39 mg/dL (0.72-1.25); POTASSIUM 3.7 mmol/L (3.5-5.1)
[2025-01-06] MEDS ORDERED: CIPRO500 MG PO (09:41)
[2025-01-06] MEDS ORDERED: ELIQUIS2.5 MG PO (09:41)
[2025-01-06] MEDS ORDERED: BENZONATATE100 MG PO (09:41)
[2025-01-06] MEDS: LEVOFLOXACIN 250 MG TAB PO ONE (14:36)
== END 2025-01-06 17:49 | disposition home or self-care (01) | DRG 871 ==
LOC: ER 21:41 → ERHOLD 23:45 → ICU 01-02 00:49
PROVIDERS: ADMIT Internal Medicine; ATTEND Internal Medicine
PROC: 3E0333Z Introduction of Anti-inflammatory into Peripheral Vein, Percutaneous Approach (ICD-10-PCS; 2025-01-01)
PROC: 5A1D70Z Performance of Urinary Filtration, Intermittent, Less than 6 Hours Per Day (ICD-10-PCS; 2025-01-01)
PROC: 5A09357 Assistance with Respiratory Ventilation, Less than 24 Consecutive Hours, Continuous Positive Airway Pressure (ICD-10-PCS; principal; 2025-01-05)
DX: A41.52 Sepsis due to Pseudomonas (principal); J96.21 Acute and chronic respiratory failure with hypoxia; N18.6 End stage renal disease; I12.0 Hypertensive chronic kidney disease with stage 5 chronic kidney disease or end stage renal disease; E87.20 Acidosis, unspecified; E66.2 Morbid (severe) obesity with alveolar hypoventilation; Z68.43 Body mass index [BMI] 50.0-59.9, adult; J96.12 Chronic respiratory failure with hypercapnia; N39.0 Urinary tract infection, site not specified; E87.1 Hypo-osmolality and hyponatremia; E11.22 Type 2 diabetes mellitus with diabetic chronic kidney disease; D63.1 Anemia in chronic kidney disease; R65.20 Severe sepsis without septic shock; Z99.81 Dependence on supplemental oxygen; Z99.2 Dependence on renal dialysis; E87.6 Hypokalemia; E11.42 Type 2 diabetes mellitus with diabetic polyneuropathy; E11.51 Type 2 diabetes mellitus with diabetic peripheral angiopathy without gangrene; E78.5 Hyperlipidemia, unspecified; K21.9 Gastro-esophageal reflux disease without esophagitis; R53.81 Other malaise; R11.2 Nausea with vomiting, unspecified; Z11.52 Encounter for screening for COVID-19; Z79.01 Long term (current) use of anticoagulants; Z79.82 Long term (current) use of aspirin; Z79.4 Long term (current) use of insulin; Z89.432 Acquired absence of left foot
CPT/HCPCS: 36415; 71045; 71260; 74177; 80048; 80053; 80061; 81001; 82550; 82948; 83036; 83518; 83605; 83690; 83880; 84484; 85025; 86704; 86706; 87040; 87070; 87086; 87186; 87340; 93005; 94799; 96372; 99252; 99284; J2270; J2470; J2543; J7030; J7050; Q9967